=== PATIENT | male | born 1955 | race Two or more races ===

== ENCOUNTER 2020-12-25 09:18 | Outpatient (REF) | payer MEDICARE, MEDICAID, SELFPAY ==
[2020-12-25 11:58] LABS: Alanine Aminotransferase 50 U/L (0-40); Albumin Level 4.4 g/dL (3.5-5.0); Alkaline Phosphatase 68 U/L (39-117); Anion Gap 16 (12-20); Aspartate Amino Transferase 27 U/L (5-37); Bilirubin Direct 0.2 mg/dL (0.0-0.5); Bilirubin Total 0.6 mg/dL (0.0-1.0); Blood Urea Nitrogen 16 mg/dL (9-16); Calcium 9.1 mg/dL (8.4-10.2); Carbon Dioxide 27 mmol/L (22-29); Chloride 105 mmol/L (96-108); Cholesterol 143 mg/dL; Estimated Glomerular Filt Rate > 60; Glucose Fasting 137 mg/dL (60-99); HDL Cholesterol 53 mg/dL; LDL Cholesterol Calculated 64 mg/dl; Potassium 4.5 mmol/L (3.3-5.1); Sodium 143 mmol/L (135-145); Triglycerides 134 mg/dL
[2020-12-25 12:00] LABS: Hematocrit 46.9 % (42-52); Hemoglobin 15.4 g/dl (14.0-18.0); Mean Corpuscular HGB Conc 32.8 g/dl (31.0-36.0); Mean Corpuscular Hemoglobin 29.5 pg (27.0-33.0); Mean Corpuscular Volume 89.8 fL (80-98); Mean Platelet Volume 10.6 fL (9.4-12.4); Platelet Count 211 X10*3/uL (160-400); Red Blood Count 5.22 X10*6/uL (4.60-5.80); Red Cell Distribution Width 13.2 % (11.0-16.0); White Blood Count 5.1 X10*3/uL (4.8-10.8)
[2020-12-25 12:04] LABS: Creatinine Urine 229.38 mg/dL; Microalbum/Creatinine Ratio Ur 5.2 ug/mg cr
[2020-12-25 12:35] LABS: Estimated Average Glucose 146 mg/dL; Hemoglobin A1c % 6.7 %
== END 2020-12-25 09:19 | disposition home or self-care (01) ==
LOC: HO.HMGCLDS 09:18
PROVIDERS: PCP Internal Medicine; Visit Provider Internal Medicine
DX: E78.2 Mixed hyperlipidemia (principal); E11.9 Type 2 diabetes mellitus without complications; I10 Essential (primary) hypertension; R79.89 Other specified abnormal findings of blood chemistry
CPT/HCPCS: 36415; 80053; 80061; 80076; 82043; 82248; 83036; 85027

== ENCOUNTER 2021-04-13 09:11 | Outpatient (REF) | payer MEDICARE, MEDICAID, SELFPAY ==
[2021-04-13 12:09] LABS: Alanine Aminotransferase 38 U/L (0-40); Albumin Level 4.3 g/dL (3.5-5.0); Alkaline Phosphatase 65 U/L (39-117); Anion Gap 12 (12-20); Aspartate Amino Transferase 19 U/L (5-37); Bilirubin Total 0.5 mg/dL (0.0-1.0); Blood Urea Nitrogen 15 mg/dL (9-16); Calcium 9.4 mg/dL (8.4-10.2); Carbon Dioxide 29 mmol/L (22-29); Chloride 107 mmol/L (96-108); Cholesterol 128 mg/dL; Estimated Glomerular Filt Rate > 60; Glucose Fasting 117 mg/dL (60-99); HDL Cholesterol 46 mg/dL; LDL Cholesterol Calculated 62 mg/dl; Potassium 4.6 mmol/L (3.3-5.1); Sodium 143 mmol/L (135-145); Total Protein 6.7 g/dL (6.5-8.0); Triglycerides 104 mg/dL
[2021-04-13 12:21] LABS: Estimated Average Glucose 117 mg/dL; Hemoglobin A1c % 5.7 %
== END 2021-04-13 09:12 | disposition home or self-care (01) ==
LOC: HO.HMGCLDS 09:11
PROVIDERS: PCP Internal Medicine; Visit Provider Internal Medicine
DX: E11.9 Type 2 diabetes mellitus without complications (principal); I10 Essential (primary) hypertension; E78.5 Hyperlipidemia, unspecified; I25.10 Atherosclerotic heart disease of native coronary artery without angina pectoris
CPT/HCPCS: 36415; 80053; 80061; 83036

== ENCOUNTER 2021-04-15 09:20 | Outpatient (REF) | payer MEDICARE, MEDICAID, SELFPAY ==
[2021-04-15 12:10] LABS: Creatinine Urine 139.98 mg/dL; Microalbum/Creatinine Ratio Ur 5.7 ug/mg cr
== END 2021-04-15 09:21 | disposition home or self-care (01) ==
LOC: HO.HMGCLNP 09:20
PROVIDERS: Visit Provider Internal Medicine
DX: E11.9 Type 2 diabetes mellitus without complications (principal); E78.5 Hyperlipidemia, unspecified; I10 Essential (primary) hypertension; I25.10 Atherosclerotic heart disease of native coronary artery without angina pectoris
CPT/HCPCS: 82043

== ENCOUNTER 2022-06-08 08:35 | Outpatient (REF) | payer MEDICARE, MEDICAID, SELFPAY ==
[2022-06-08 11:40] LABS: Hematocrit 43.3 % (42.0-52.0); Hemoglobin 14.7 g/dl (14.0-18.0); Mean Corpuscular HGB Conc 33.9 g/dl (31.0-36.0); Mean Corpuscular Hemoglobin 29.5 pg (27.0-33.0); Mean Corpuscular Volume 86.8 fL (80.0-98.0); Mean Platelet Volume 10.2 fL (9.4-12.4); Platelet Count 237 X10*3/uL (160-400); Red Blood Count 4.99 X10*6/uL (4.60-5.80); Red Cell Distribution Width 13.1 % (11.0-16.0); White Blood Count 5.9 X10*3/uL (4.8-10.8)
[2022-06-08 11:48] LABS: Estimated Average Glucose 126 mg/dL
[2022-06-08 12:06] LABS: Alanine Aminotransferase 22 U/L (0-40); Albumin Level 4.3 g/dL (3.5-5.0); Alkaline Phosphatase 50 U/L (39-117); Anion Gap 16 (12-20); Aspartate Amino Transferase 15 U/L (5-37); Bilirubin Total 0.4 mg/dL (0.0-1.0); Blood Urea Nitrogen 14 mg/dL (9-16); Calcium 9.1 mg/dL (8.4-10.2); Carbon Dioxide 23 mmol/L (22-29); Chloride 106 mmol/L (96-108); Cholesterol 132 mg/dL; Estimated Glomerular Filt Rate > 60; Glucose Fasting 113 mg/dL (60-99); HDL Cholesterol 50 mg/dL; LDL Cholesterol Calculated 54 mg/dl; Potassium 4.4 mmol/L (3.3-5.1); Sodium 141 mmol/L (135-145); Total Protein 6.9 g/dL (6.5-8.0); Triglycerides 144 mg/dL
[2022-06-08 12:09] LABS: Prostate Specific Antigen Scr 0.58 ng/mL (<0.05-4.0)
[2022-06-08 12:41] LABS: Creatinine Urine 206.63 mg/dL; Microalbum/Creatinine Ratio Ur 7.2 ug/mg cr
== END 2022-06-08 08:36 | disposition home or self-care (01) ==
LOC: HO.HMGCLDS 08:35
PROVIDERS: PCP Internal Medicine; Visit Provider Internal Medicine
DX: Z12.5 Encounter for screening for malignant neoplasm of prostate (principal); E11.9 Type 2 diabetes mellitus without complications; E78.5 Hyperlipidemia, unspecified
CPT/HCPCS: 36415; 80053; 80061; 82043; 83036; 84153; 85027

== ENCOUNTER 2022-12-05 09:00 | Outpatient (REF) | payer MEDICARE, MEDICAID, SELFPAY ==
[2022-12-05 11:54] LABS: Alanine Aminotransferase 30 U/L (0-40); Albumin Level 4.3 g/dL (3.5-5.0); Alkaline Phosphatase 51 U/L (39-117); Anion Gap 12 (12-20); Aspartate Amino Transferase 20 U/L (5-37); Bilirubin Total 0.5 mg/dL (0.0-1.0); Blood Urea Nitrogen 19 mg/dL (9-16); Calcium 9.1 mg/dL (8.4-10.2); Carbon Dioxide 26 mmol/L (22-29); Chloride 107 mmol/L (96-108); Cholesterol 116 mg/dL; Estimated Glomerular Filt Rate > 60; Glucose Fasting 103 mg/dL (60-99); HDL Cholesterol 45 mg/dL; LDL Cholesterol Calculated 51 mg/dl; Potassium 4.4 mmol/L (3.3-5.1); Sodium 141 mmol/L (135-145); Total Protein 6.7 g/dL (6.5-8.0); Triglycerides 104 mg/dL
[2022-12-05 12:19] LABS: Estimated Average Glucose 128 mg/dL; Hemoglobin A1c % 6.1 %
== END 2022-12-05 09:01 | disposition home or self-care (01) ==
LOC: HO.HMGCLDS 09:00
PROVIDERS: PCP Internal Medicine; Visit Provider Internal Medicine
DX: E78.5 Hyperlipidemia, unspecified (principal); R56.9 Unspecified convulsions; E11.9 Type 2 diabetes mellitus without complications
CPT/HCPCS: 36415; 80053; 80061; 83036

== ENCOUNTER 2023-01-26 09:19 | Outpatient (REF) | payer MEDICARE, MEDICAID, SELFPAY | END 2023-01-26 09:20 | disposition home or self-care (01) | LOC: HO.SH 09:19 | PROVIDERS: Visit Provider Internal Medicine | DX: H90.3 Sensorineural hearing loss, bilateral (principal) | CPT/HCPCS: 92557; 92567 ==

== ENCOUNTER 2023-06-01 08:52 | Outpatient (REF) | payer MEDICARE, MEDICAID, SELFPAY ==
[2023-06-01 11:36] LABS: MANUAL DIFF FLAG NO
[2023-06-01 11:48] LABS: Basophils Percent Auto 0.6 % (0-2); Eosinophils Absolute Auto 0.1 X10*3/uL (0.0-0.4); Eosinophils Percent Auto 1.3 % (0-4); Hematocrit 42.2 % (42.0-52.0); Hemoglobin 14.1 g/dl (14.0-18.0); Imm Gran Abs Auto 0.05 X10*3/uL (0.00-0.03); Lymphocytes Absolute Auto 2.7 X10*3/uL (1.2-4.9); Mean Corpuscular HGB Conc 33.4 g/dl (31.0-36.0); Mean Corpuscular Hemoglobin 29.7 pg (27.0-33.0); Mean Corpuscular Volume 88.8 fL (80.0-98.0); Mean Platelet Volume 10.3 fL (9.4-12.4); Monocytes Absolute Auto 0.6 X10*3/uL (0.1-1.2); Neutrophils Absolute Auto 1.9 x10*3/uL (2.0-8.3); Neutrophils Percent Auto 35.1 % (45-73); Platelet Count 206 X10*3/uL (160-400); Red Blood Count 4.75 X10*6/uL (4.60-5.80); Red Cell Distribution Width 13.4 % (11.0-16.0); White Blood Count 5.3 X10*3/uL (4.8-10.8)
[2023-06-01 12:02] LABS: Estimated Average Glucose 120 mg/dL; Hemoglobin A1c % 5.8 % (<6.0)
[2023-06-01 12:13] LABS: Alanine Aminotransferase 18 U/L (0-40); Albumin Level 4.1 g/dL (3.5-5.0); Alkaline Phosphatase 44 U/L (39-117); Anion Gap 15 (12-20); Aspartate Amino Transferase 13 U/L (5-37); Bilirubin Total 0.4 mg/dL (0.0-1.0); Blood Urea Nitrogen 12 mg/dL (9-16); Calcium 9.2 mg/dL (8.4-10.2); Carbon Dioxide 26 mmol/L (22-29); Chloride 106 mmol/L (96-108); Cholesterol 111 mg/dL (<200); Estimated Glomerular Filt Rate > 60; Glucose Fasting 117 mg/dL (60-99); HDL Cholesterol 48 mg/dL (>40); LDL Cholesterol Calculated 44 mg/dL (<100); Potassium 4.1 mmol/L (3.3-5.1); Sodium 143 mmol/L (135-145); Total Protein 6.2 g/dL (6.5-8.0); Triglycerides 99 mg/dL (<150)
[2023-06-01 12:23] LABS: PSA,Total (Free>4and<10) 1.51 ng/mL (0.00-4.00)
[2023-06-01 13:22] LABS: Creatinine Urine 200.84 mg/dL; Microalbum/Creatinine Ratio Ur 7.4 ug/mg cr (<30)
== END 2023-06-01 08:53 | disposition home or self-care (01) ==
LOC: HO.HMGCLDS 08:52
PROVIDERS: PCP Internal Medicine; Visit Provider Internal Medicine
DX: Z00.00 Encounter for general adult medical examination without abnormal findings (principal); E11.9 Type 2 diabetes mellitus without complications; R56.9 Unspecified convulsions; E78.5 Hyperlipidemia, unspecified; Z12.5 Encounter for screening for malignant neoplasm of prostate
CPT/HCPCS: 36415; 80053; 80061; 82043; 82570; 83036; 84153; 85025

== ENCOUNTER 2023-06-12 11:17 | Outpatient (AMB) | payer MEDICARE, MEDICAID, SELFPAY ==
--- NOTE | 2023-06-12 11:29 | A.OFFPC_ITS ---
Vital Signs 06/12/23 11:38 Height 5 ft 7 in Weight 212 lb BMI 33.2 BP 104/66 Blood Pressure Location Rt brachial Position Sitting Pulse 80 Pulse Source Pulse Oximeter Pulse Oximetry (%) 95 Oxygen Delivery Method Room Air Intake Visit Reasons: Annual Physical Intake Note: Pt is here today for his PE Allergies No Known Allergies Allergy (Verified 06/12/23 11:32) Medication List - Last Reconciled 06/12/23 by Gisela Jade MD blood sugar diagnostic ([employer] Verio test strips) Test blood sugar once a day blood-glucose meter ([employer] Verio Meter) As directed cholecalciferol (vitamin D3) (Vitamin D3) 25 mcg PO DAILY divalproex ER 1,000 mg PO BEDTIME dulaglutide (Trulicity) 3 mg (0.5 mL) subcut QWEEK famotidine 20 mg PO BEDTIME lancets ([employer] Delica Lancets) Test blood sugar once a day levetiracetam mg PO metformin ER 750 mg PO BID metoprolol tartrate 12.5 mg (1/2 x 25 mg) PO DAILY metronidazole 0.75% (MetroCream) 1 appl topical BEDTIME oxcarbazepine 300 mg PO BID rosuvastatin 20 mg PO DAILY Tobacco use date assessed: 06/12/23 Fall risk assessment: No Falls in past year Last assessed Fall Risk: 06/12/23 Dental Screening Dental Screen Date: 06/12/23 Did you have a dental visit in the last 12 months?: No Was dental information given to patient?: Patient declined HPI Annual Physical HPI Details Patient presents for physical. He complains of intermittent right axillary region discomfort and swelling for the last month. He denies any injury [facility] Medical History Annual physical exam Colonoscopy refused Colon cancer screening Type 2 diabetes mellitus CAD (coronary artery disease) Seizure Hyperlipidemia Cardiac arrest HTN (hypertension) Family History Father Diabetes Stroke Mother Hypertension Social History Housing: House Patient Tobacco Use Status: Former Tobacco user Quit Date: 9 years ago e-Cigarette/Vaping Use: Never Used Current occupational status: retired Cognitive needs: No Hearing needs: Yes Vision needs: No Questionnaire Thrive Questionnaire Date Thrive assessed: 12/12/22 AUDIT C Alcohol Use Questionnaire (AUDIT-C) 1. How often do you have a drink containing alcohol?: Never 3. How often do you have six or more drinks on one occasion?: Never Total Score: 0 JOELLE-7 AMB Questionnaire JOELLE-7 Date JOELLE - 7 assessed: 12/12/22 Source: Developed by Drs. Flo Holley, Torrie Dave, Mohit Martino and colleagues, with an educational deniz from [employer]. Review of Systems Const All systems reviewed & are unremarkable except as noted in HPI and below Reports no additional complaints Eyes Reports no additional complaints ENT Reports no additional complaints Card Reports no additional complaints Resp Reports no additional complaints GI Reports no additional complaints Reports no additional complaints Physical exam (Primary Care) Vital Signs: Last Vital Signs Pulse 80 06/12/23 11:38 BP 104/66 06/12/23 11:38 Pulse Ox 95 06/12/23 11:38 Oxygen Delivery Method Room Air 06/12/23 11:38 BMI result Body Mass Index 33.2 Tobacco/Smoking Status: Tobacco use Status Tobacco use date assessed 06/12/23 06/12/23 11:38 Patient Tobacco Use Status Former Tobacco user 06/12/23 11:30 e-Cigarette/Vaping Use Never Used 06/12/23 11:30 Thrive Assessment: Date of Thrive Assessment Date Thrive assessed 12/12/22 06/12/23 11:30 Const General: no acute distress HENMT Head: Yes normal to inspection Face and sinus: Yes normal facial exam Eyes General: appearance normal, both eyes and all related structures Neck Neck: Yes no lymphadenopathy and Yes supple Chest Other: Right axillary region fullness and tenderness, no overlying skin changes erythema or warmth Resp Effort & Inspection: normal respiratory effort Auscultation: clear to auscultation bilaterally Cardio Rhythm: regular rhythm Heart sounds: S1 normal heart sound present and S2 normal heart sound present GI Inspection: Yes normal to inspection Palpation (GI): Soft to palpation Assessment and Plan Assessment & Plan (1) Mass of axilla: Comment: R axillary Code(s): R22.30 - Localized swelling, mass and lump, unspecified upper limb Plan: Obtain soft tissue ultrasound to evaluate for right axillary region (2) Type 2 diabetes mellitus: Code(s): E11.9 - Type 2 diabetes mellitus without complications Plan: A1c is 5.8, new ADA diet increase physical activity weight loss discussed. Follow-up in 6 months with a fasting labs before (3) Hyperlipidemia: Code(s): E78.5 - Hyperlipidemia, unspecified Plan: Continue statin (4) Annual physical exam: Code(s): Z00.00 - Encounter for general adult medical examination without abnormal findings Plan: Well-balanced diet and regular physical activity discussed with the patient (5) Rosacea: Code(s): L71.9 - Rosacea, unspecified Plan: Try azelaic acid gel Orders: Orders US extremity nonvascular Today R22.30 - Localized swelling, mass and lump, unspecified upper limb Complete Blood Count Auto Diff 6 Months E11.9 - Type 2 diabetes mellitus without complications, E78.5 - Hyperlipidemia, unspecified Lipid Panel 6 Months E11.9 - Type 2 diabetes mellitus without complications, E78.5 - Hyperlipidemia, unspecified Comprehensive [place]. Panel Fast 6 Months E11.9 - Type 2 diabetes mellitus without complications, E78.5 - Hyperlipidemia, unspecified Hemoglobin A1c 6 Months E11.9 - Type 2 diabetes mellitus without complications, E78.5 - Hyperlipidemia, unspecified Medications: New azelaic acid 15% (Finacea) 1 appl topical BID 50 grams 1RF Coding Level of Care Code Est Pt Prev Care >65y(84473) Diagnoses Mass of axilla R22.30 Type 2 diabetes mellitus E11.9 Hyperlipidemia E78.5 Annual physical exam Z00.00 Rosacea L71.9
[2023-06-12 11:38] VITALS: BP 104/66; PULSE 80; O2SAT 95; BMI 33.2
== END 2023-06-12 12:48 | disposition home or self-care (01) ==
PROVIDERS: Visit Provider Internal Medicine
DX: Z00.00 Encounter for general adult medical examination without abnormal findings (principal); R22.30 Localized swelling, mass and lump, unspecified upper limb; E11.9 Type 2 diabetes mellitus without complications; E78.5 Hyperlipidemia, unspecified; L71.9 Rosacea, unspecified
CPT/HCPCS: 99397

== ENCOUNTER 2023-06-13 13:46 | Outpatient (REF) | payer MEDICARE, MEDICAID, SELFPAY ==
--- NOTE | ~2023-06-13 | US_ITS ---
EXAMINATION: US CHEST CLINICAL INFORMATION: Localized swelling, mass and lump. COMPARISON: None available. TECHNIQUE: Limited ultrasound imaging to the right axilla was performed. Rare patient has swelling. FINDINGS: Imaging to the tender area of right axilla reveals no mass, mass effect or increased vascularity. No lymph nodes seen either. The disc and appears unremarkable. US/US chest IMPRESSION: Limited imaging through the right axilla reveals no focal mass or mass effect. No abnormal vascularity seen either..
== END 2023-06-13 13:47 | disposition home or self-care (01) ==
LOC: HO.HMGCX 13:46
PROVIDERS: PCP Internal Medicine; Visit Provider Internal Medicine
DX: R22.30 Localized swelling, mass and lump, unspecified upper limb (principal)
CPT/HCPCS: 76604

== ENCOUNTER 2023-12-01 09:04 | Outpatient (REF) | payer MEDICARE, MEDICAID, SELFPAY ==
[2023-12-01 10:38] LABS: MANUAL DIFF FLAG NO
[2023-12-01 10:46] LABS: Basophils Percent Auto 0.6 % (0-2); Eosinophils Absolute Auto 0.1 X10*3/uL (0.0-0.4); Eosinophils Percent Auto 1.1 % (0-4); Hematocrit 43.6 % (42.0-52.0); Hemoglobin 14.8 g/dl (14.0-18.0); Imm Gran Abs Auto 0.05 X10*3/uL (0.00-0.03); Lymphocytes Absolute Auto 2.5 X10*3/uL (1.2-4.9); Lymphocytes Percent Auto 48.4 % (20-40); Mean Corpuscular HGB Conc 33.9 g/dl (31.0-36.0); Mean Corpuscular Hemoglobin 29.9 pg (27.0-33.0); Mean Corpuscular Volume 88.1 fL (80.0-98.0); Mean Platelet Volume 10.5 fL (9.4-12.4); Monocytes Absolute Auto 0.7 X10*3/uL (0.1-1.2); Monocytes Percent Auto 13.6 % (2-11); Neutrophils Absolute Auto 1.9 x10*3/uL (2.0-8.3); Neutrophils Percent Auto 35.3 % (45-73); Platelet Count 226 X10*3/uL (160-400); Red Blood Count 4.95 X10*6/uL (4.60-5.80); Red Cell Distribution Width 13.6 % (11.0-16.0); White Blood Count 5.2 X10*3/uL (4.8-10.8)
[2023-12-01 11:02] LABS: Estimated Average Glucose 131 mg/dL; Hemoglobin A1c % 6.2 % (<6.0)
[2023-12-01 12:20] LABS: Alanine Aminotransferase 26 U/L (0-40); Albumin Level 4.3 g/dL (3.5-5.0); Alkaline Phosphatase 48 U/L (39-117); Anion Gap 15 (12-20); Aspartate Amino Transferase 20 U/L (5-37); Bilirubin Total 0.4 mg/dL (0.0-1.0); Blood Urea Nitrogen 16 mg/dL (9-16); Calcium 9.4 mg/dL (8.4-10.2); Carbon Dioxide 27 mmol/L (22-29); Chloride 107 mmol/L (96-108); Cholesterol 115 mg/dL (<200); Estimated Glomerular Filt Rate > 60; Glucose Fasting 124 mg/dL (60-99); HDL Cholesterol 50 mg/dL (>40); LDL Cholesterol Calculated 47 mg/dL (<100); Potassium 4.5 mmol/L (3.3-5.1); Sodium 144 mmol/L (135-145); Total Protein 7.3 g/dL (6.5-8.0); Triglycerides 93 mg/dL (<150)
== END 2023-12-01 09:05 | disposition home or self-care (01) ==
LOC: HO.HMGCLDS 09:04
PROVIDERS: PCP Internal Medicine; Visit Provider Internal Medicine
DX: E11.9 Type 2 diabetes mellitus without complications (principal); E78.5 Hyperlipidemia, unspecified
CPT/HCPCS: 36415; 80053; 80061; 83036; 85025

== ENCOUNTER 2023-12-12 10:40 | Outpatient (AMB) | payer MEDICARE, MEDICAID, SELFPAY ==
--- NOTE | 2023-12-12 10:47 | MHC.PC.OV ---
Vital Signs 12/12/23 10:51 Height 5 ft 7 in Weight 215 lb BMI 33.7 BP 110/62 Blood Pressure Location Rt brachial Position Sitting Pulse 76 Pulse Source Pulse Oximeter Pulse Oximetry (%) 96 Oxygen Delivery Method Room Air Intake Visit Reasons: 6 month f/u - see comments Intake Note: Pt is here today for 6 months follow up visit on labs. Allergies No Known Allergies Allergy (Verified 12/12/23 10:58) Medication List - Last Reconciled 12/12/23 by Gisela Jade MD azelaic acid 15% (Finacea) 1 appl topical BID blood sugar diagnostic ([employer] Verio test strips) Test blood sugar once a day blood-glucose meter ([employer] Verio Meter) As directed cholecalciferol (vitamin D3) (Vitamin D3) 25 mcg PO DAILY divalproex ER 1,000 mg PO BEDTIME dulaglutide (Trulicity) 4.5 mg (0.5 mL) subcut QWEEK dulaglutide (Trulicity) 3 mg (0.5 mL) subcut QWEEK famotidine 20 mg PO BEDTIME lancets ([employer] Delica Lancets) Test blood sugar once a day levetiracetam mg PO metformin ER 750 mg PO BID metoprolol tartrate 12.5 mg (1/2 x 25 mg) PO DAILY metronidazole 0.75% (MetroCream) 1 appl topical BEDTIME oxcarbazepine 300 mg PO BID rosuvastatin 20 mg PO DAILY Tobacco use date assessed: 12/12/23 Fall risk assessment: No Falls in past year Last assessed Fall Risk: 12/12/23 Dental Screening Dental Screen Date: 12/12/23 Did you have a dental visit in the last 12 months?: Yes Did you have a dental problem in the last 6 months where you did not have access to dental care?: No Was dental information given to patient?: Patient has dentist HPI 6 month f/u - see comments HPI Details Pt presents for DM 2, hyperlipid, seizure disorder after anoxic brain injury PFSH Medical History Annual physical exam Colonoscopy refused Colon cancer screening Type 2 diabetes mellitus CAD (coronary artery disease) Seizure Hyperlipidemia Cardiac arrest HTN (hypertension) Family History Father Diabetes Stroke Mother Hypertension Social History Housing: House Patient Tobacco Use Status: Former Tobacco user Quit Date: 9 years ago e-Cigarette/Vaping Use: Never Used service: No Current occupational status: retired Cognitive needs: No Hearing needs: Yes Vision needs: No Questionnaire PHQ-9 Over the last 2 weeks, how often have you been bothered by any of the following problems? 1. Little interest or pleasure in doing things: not at all 2. Feeling down, depressed, or hopeless: not at all 3. Trouble falling or staying asleep, or sleeping too much: not at all 4. Feeling tired or having little energy: not at all 5. Poor appetite or overeating: not at all 6. Feeling bad about yourself - or that you are a failure or have let yourself or your family down: not at all 7. Trouble concentrating on things, such as reading the newspaper or watching television: not at all 8. Moving or speaking so slowly that other people could have noticed. Or the opposite - being so fidgety or restless that you have been moving around a lot more than usual: not at all 9. Thoughts that you would be better off or of hurting yourself in some way: not at all Total score: 0 Depression Screening Interpretation: Negative Depression Screening Done: Yes Source: Developed by Drs. Flo Holley, Torrie Dave, Mohit Martino and colleagues, with an educational deniz from [employer]. Thrive Questionnaire Date Thrive assessed: 12/12/23 I am a: Patient What is your living situation today?: I have a steady place to live Within the past 12 months, did the food you bought not last and you didn't have the money to get more?: Never true Within the past 12 months, did you worry whether your food would run out before you got money to buy more?: Never true Do you have trouble paying for medicines?: No Do you have trouble getting transportation to medical appointments?: No Do you have trouble paying your heating and electricity bill?: No Do you have trouble taking care of your child, family member or friend?: No Do you have trouble with day-to-day activities such as bathing, preparing meals, shopping, managing finances, etc.?: No Are you currently unemployed and looking for a job?: No Are you interested in more education?: No Please select the resources that you would like help with: None THRIVE Score: 0 AUDIT C Alcohol Use Questionnaire (AUDIT-C) 1. How often do you have a drink containing alcohol?: Never 3. How often do you have six or more drinks on one occasion?: Never Total Score: 0 JOELLE-7 AMB Questionnaire JOELLE-7 Date JOELLE - 7 assessed: 12/12/23 Feeling nervous, anxious, or on edge: 0 = Not at all Not being able to stop or control worryin = Not at all Worrying too much about different things: 0 = Not at all Trouble relaxin = Not at all Being so restless that it is hard to sit still: 0 = Not at all Becoming easily annoyed or irritable: 0 = Not at all Feeling afraid as if something awful might happen: 0 = Not at all Total JOELLE-7 score (0-4 normal; 5-9 mild; 10-14 moderate; 15-21 severe): 0 Source: Developed by Drs. Flo Holley, Torrie Dave, Mohit Martino and colleagues, with an educational deniz from [employer]. Review of Systems Const All systems reviewed & are unremarkable except as noted in HPI and below ENT Reports no additional complaints Card Reports no additional complaints Resp Reports no additional complaints GI Reports no additional complaints Reports no additional complaints Physical exam (Primary Care) Vital Signs: Last Vital Signs Pulse 76 12/12/23 10:51 BP 110/62 12/12/23 10:51 Pulse Ox 96 12/12/23 10:51 Oxygen Delivery Method Room Air 12/12/23 10:51 BMI result Body Mass Index 33.7 Tobacco/Smoking Status: Tobacco use Status Tobacco use date assessed 12/12/23 12/12/23 10:59 Patient Tobacco Use Status Former Tobacco user 12/12/23 10:59 e-Cigarette/Vaping Use Never Used 12/12/23 10:47 PHQ-9: PHQ-9 Score PHQ-9: Total score 0 12/12/23 11:03 Depression Screening Interpretation: Negative Thrive Assessment: Date of Thrive Assessment Date Thrive assessed 12/12/23 12/12/23 11:03 Const General: no acute distress Eyes General: appearance normal, both eyes and all related structures Neck Neck: Yes supple Resp Effort & Inspection: normal respiratory effort Auscultation: clear to auscultation bilaterally Cardio Rhythm: regular rhythm Heart sounds: S1 normal heart sound present and S2 normal heart sound present GI Inspection: Yes normal to inspection Palpation (GI): Soft to palpation Percussion: Yes normal to percussion Auscultation: normal bowel sounds Assessment and Plan Assessment & Plan (1) Hyperlipidemia: Code(s): E78.5 - Hyperlipidemia, unspecified Plan: cont statin (2) Seizure: Code(s): R56.9 - Unspecified convulsions Plan: controlled on meds, f/u neurology (3) Type 2 diabetes mellitus: Code(s): E11.9 - Type 2 diabetes mellitus without complications Plan: A1C is 6.2, ADA diet increase exercise weight loss discussed with the patient. Increase Trulicity to 4.5 mg continue metformin, follow-up in 6 months with a fasting labs before Orders: Orders Comprehensive [place]. Panel Fast 6 Months E11.9 - Type 2 diabetes mellitus without complications, E78.5 - Hyperlipidemia, unspecified, R56.9 - Unspecified convulsions Hemoglobin A1c 6 Months E11.9 - Type 2 diabetes mellitus without complications, E78.5 - Hyperlipidemia, unspecified, R56.9 - Unspecified convulsions Lipid Panel 6 Months E11.9 - Type 2 diabetes mellitus without complications, E78.5 - Hyperlipidemia, unspecified, R56.9 - Unspecified convulsions PSA,Total (Free>4and<10) 6 Months E11.9 - Type 2 diabetes mellitus without complications, E78.5 - Hyperlipidemia, unspecified, R56.9 - Unspecified convulsions Medications: New dulaglutide (Trulicity) 4.5 mg (0.5 mL) subcut QWEEK 6 mL 3RF Discontinued dulaglutide (Trulicity) Discontinued Reason: Doctor's Order 3 mg (0.5 mL) subcut QWEEK 6 mL 3RF Coding Level of Care Code Est Pt Level 4 (58819) Diagnoses Hyperlipidemia E78.5 Seizure R56.9 Type 2 diabetes mellitus E11.9
[2023-12-12 10:51] VITALS: BP 110/62; PULSE 76; O2SAT 96; BMI 33.7
== END 2023-12-12 13:53 | disposition home or self-care (01) ==
PROVIDERS: PCP Internal Medicine; Visit Provider Internal Medicine
DX: E78.5 Hyperlipidemia, unspecified (principal); R56.9 Unspecified convulsions; E11.69 Type 2 diabetes mellitus with other specified complication
CPT/HCPCS: 99214

== ENCOUNTER 2023-12-28 10:51 | Outpatient (AMB) | payer MEDICARE, MEDICAID, SELFPAY ==
--- NOTE | 2023-12-28 11:19 | MHC.PC.OV ---
Vital Signs 12/28/23 11:20 Height 5 ft 7 in Weight 208 lb BMI 32.6 BP 110/68 Blood Pressure Location Lt brachial Position Sitting Pulse 96 Pulse Source Pulse Oximeter Pulse Oximetry (%) 94 Oxygen Delivery Method Room Air Intake Visit Reasons: Swollen eye w/puss/strep? Intake Note: Pt is here today for a sick visit. Pt c/o deep cough and sore throat for last 3 days. Allergies No Known Allergies Allergy (Verified 12/28/23 11:26) Tobacco use date assessed: 12/12/23 Dental Screening Dental Screen Date: 12/12/23 HPI HPI Comments History of Present Illness Details Patient presents with 3 days of sore throat dry cough congestion low-grade fever. Patient denies shortness or breath sputum production pleurisy. [facility] Medical History Annual physical exam Colonoscopy refused Colon cancer screening Type 2 diabetes mellitus CAD (coronary artery disease) Seizure Hyperlipidemia Cardiac arrest HTN (hypertension) Family History Father Diabetes Stroke Mother Hypertension Social History Housing: House Patient Tobacco Use Status: Former Tobacco user Quit Date: 9 years ago e-Cigarette/Vaping Use: Never Used service: No Current occupational status: retired Cognitive needs: No Hearing needs: Yes Vision needs: No Questionnaire Thrive Questionnaire Date Thrive assessed: 12/12/23 JOELLE-7 AMB Questionnaire JOELLE-7 Date JOELLE - 7 assessed: 12/12/23 Source: Developed by Drs. Flo Holley, Torrie Dave, Mohit Martino and colleagues, with an educational deniz from [employer]. Review of Systems Const All systems reviewed & are unremarkable except as noted in HPI and below ENT Reports no additional complaints Card Reports no additional complaints Resp Reports no additional complaints GI Reports no additional complaints Physical exam (Primary Care) Vital Signs: Last Vital Signs Pulse 96 12/28/23 11:20 BP 110/68 12/28/23 11:20 Pulse Ox 94 12/28/23 11:20 Oxygen Delivery Method Room Air 12/28/23 11:20 BMI result Body Mass Index 32.6 Tobacco/Smoking Status: Tobacco use Status Tobacco use date assessed 12/12/23 12/28/23 11:26 Patient Tobacco Use Status Former Tobacco user 12/28/23 11:26 e-Cigarette/Vaping Use Never Used 12/28/23 11:26 Thrive Assessment: Date of Thrive Assessment Date Thrive assessed 12/12/23 12/28/23 11:26 Const General: no acute distress HENMT Head: Yes normal to inspection Ears: TM's normal bilaterally Face and sinus: Yes normal facial exam and No sinus tenderness Throat: Yes posterior oropharynx normal Eyes General: appearance normal, both eyes and all related structures Neck Neck: Yes supple Resp Effort & Inspection: normal respiratory effort Auscultation: clear to auscultation bilaterally Cardio Rhythm: regular rhythm Heart sounds: S1 normal heart sound present and S2 normal heart sound present Assessment and Plan Assessment & Plan (1) URI (upper respiratory infection): Code(s): J06.9 - Acute upper respiratory infection, unspecified Plan: SUPPORTIVE CARE DISCUSSED Coding Level of Care Code Est Pt Level 3 (19824) Diagnoses URI (upper respiratory infection) J06.9
[2023-12-28 11:20] VITALS: BP 110/68; PULSE 96; O2SAT 94; BMI 32.6
== END 2023-12-28 12:21 | disposition home or self-care (01) ==
PROVIDERS: PCP Internal Medicine; Visit Provider Internal Medicine
DX: J06.9 Acute upper respiratory infection, unspecified (principal)
CPT/HCPCS: 99213

== ENCOUNTER 2024-06-05 09:06 | Outpatient (REF) | payer MEDICARE, MEDICAID, SELFPAY ==
[2024-06-05 10:33] LABS: Estimated Average Glucose 126 mg/dL; Hemoglobin A1C 151.1712 umol/L; Total Hemoglobin (HGBA1C) 3573.1244 umol/L
[2024-06-05 11:12] LABS: Alanine Aminotransferase 27 U/L (0-40); Albumin Level 4.2 g/dL (3.5-5.0); Alkaline Phosphatase 47 U/L (39-117); Anion Gap 13 (12-20); Aspartate Amino Transferase 17 U/L (5-37); Bilirubin Total 0.4 mg/dL (0.0-1.0); Blood Urea Nitrogen 16 mg/dL (9-16); Calcium 9.6 mg/dL (8.4-10.2); Carbon Dioxide 27 mmol/L (22-29); Chloride 107 mmol/L (96-108); Cholesterol 119 mg/dL (<200); Estimated Glomerular Filt Rate > 60; Glucose Fasting 113 mg/dL (60-99); HDL Cholesterol 51 mg/dL (>40); LDL Cholesterol Calculated 48 mg/dL (<100); Potassium 4.2 mmol/L (3.3-5.1); Sodium 143 mmol/L (135-145); Triglycerides 102 mg/dL (<150)
[2024-06-05 11:19] LABS: PSA,Total (Free>4and<10) 1.85 ng/mL (0.00-4.00)
== END 2024-06-05 09:07 | disposition home or self-care (01) ==
LOC: HO.HMGCLDS 09:06
PROVIDERS: PCP Internal Medicine; Visit Provider Internal Medicine
DX: E11.9 Type 2 diabetes mellitus without complications (principal); R56.9 Unspecified convulsions; E78.5 Hyperlipidemia, unspecified; Z12.5 Encounter for screening for malignant neoplasm of prostate
CPT/HCPCS: 36415; 80053; 80061; 83036; 84153

== ENCOUNTER 2024-06-19 10:03 | Outpatient (AMB) | payer MEDICARE, MEDICAID, SELFPAY ==
[2024-06-19 10:11] VITALS: BP 124/70; PULSE 97; O2SAT 96; BMI 32.9
--- NOTE | 2024-06-19 10:11 | MHC.PC.OV ---
Vital Signs 06/19/24 10:11 Height 5 ft 7 in Weight 210 lb BMI 32.9 BP 124/70 Blood Pressure Location Lt brachial Position Sitting Pulse 97 Pulse Source Pulse Oximeter Pulse Oximetry (%) 96 Oxygen Delivery Method Room Air Intake Visit Reasons: Annual PE - see comments Intake Note: Pt is here today for PE. Allergies No Known Allergies Allergy (Verified 06/19/24 10:12) Medication List - Last Reconciled 06/19/24 by Gisela Jade MD azelaic acid 15% (Finacea) 1 appl topical BID blood sugar diagnostic (OneTouch Verio test strips) Test blood sugar once a day blood-glucose meter (OneTouch Verio Meter) As directed cholecalciferol (vitamin D3) (Vitamin D3) 25 mcg PO DAILY divalproex ER 1,000 mg PO BEDTIME dulaglutide (Trulicity) 4.5 mg (0.5 mL) subcut QWEEK famotidine 20 mg PO BEDTIME lancets Test blood sugar once a day levetiracetam mg PO metformin ER 750 mg PO BID metoprolol tartrate 12.5 mg (1/2 x 25 mg) PO DAILY metronidazole 0.75% (MetroCream) 1 appl topical BEDTIME oxcarbazepine 300 mg PO BID rosuvastatin 20 mg PO DAILY Tobacco use date assessed: 06/19/24 Fall risk assessment: No Falls in past year Last assessed Fall Risk: 06/19/24 Dental Screening Dental Screen Date: 12/12/23 HPI Annual PE - see comments HPI Details Pt presents for PE. [facility] Medical History Annual physical exam Colonoscopy refused Colon cancer screening Type 2 diabetes mellitus CAD (coronary artery disease) Seizure Hyperlipidemia Cardiac arrest HTN (hypertension) Family History Father Diabetes Stroke Mother Hypertension Social History Housing: House Patient Tobacco Use Status: Former Tobacco user e-Cigarette/Vaping Use: Never Used service: No Current occupational status: retired Cognitive needs: No Hearing needs: Yes Vision needs: No Questionnaire PHQ-9 Over the last 2 weeks, how often have you been bothered by any of the following problems? 1. Little interest or pleasure in doing things: not at all 2. Feeling down, depressed, or hopeless: not at all 3. Trouble falling or staying asleep, or sleeping too much: several days 4. Feeling tired or having little energy: several days 5. Poor appetite or overeating: not at all 6. Feeling bad about yourself - or that you are a failure or have let yourself or your family down: several days 7. Trouble concentrating on things, such as reading the newspaper or watching television: not at all 8. Moving or speaking so slowly that other people could have noticed. Or the opposite - being so fidgety or restless that you have been moving around a lot more than usual: several days 9. Thoughts that you would be better off or of hurting yourself in some way: not at all Total score: 4 Depression Screening Interpretation: Negative Depression Screening Done: Yes 08735 - PHQ-9 Billing: Yes Source: Developed by Drs. Flo Holley, Torrie Dave, Mohit Martino and colleagues, with an educational deniz from [employer]. Thrive Questionnaire Date Thrive assessed: 06/19/24 I am a: Patient What is your living situation today?: I have a steady place to live Within the past 12 months, did the food you bought not last and you didn't have the money to get more?: I choose not to answer this question Within the past 12 months, did you worry whether your food would run out before you got money to buy more?: I choose not to answer this question Do you have trouble paying for medicines?: I choose not to answer this question Do you have trouble getting transportation to medical appointments?: I choose not to answer this question Do you have trouble paying your heating and electricity bill?: I choose not to answer this question Do you have trouble taking care of your child, family member or friend?: I choose not to answer this question Do you have trouble with day-to-day activities such as bathing, preparing meals, shopping, managing finances, etc.?: I choose not to answer this question Are you currently unemployed and looking for a job?: I choose not to answer this question Are you interested in more education?: I choose not to answer this question Please select the resources that you would like help with: None Currently or been in a relationship where the following occur: No concerns reported THRIVE Score: 0 AUDIT C Alcohol Use Questionnaire (AUDIT-C) 1. How often do you have a drink containing alcohol?: Never Total Score: 0 JOELLE-7 AMB Questionnaire JOELLE-7 Date JOELLE - 7 assessed: 06/19/24 Feeling nervous, anxious, or on edge: 1 = Several days Not being able to stop or control worryin = Not at all Worrying too much about different things: 0 = Not at all Trouble relaxin = Not at all Being so restless that it is hard to sit still: 0 = Not at all Becoming easily annoyed or irritable: 0 = Not at all Feeling afraid as if something awful might happen: 0 = Not at all Total JOELLE-7 score (0-4 normal; 5-9 mild; 10-14 moderate; 15-21 severe): 1 Source: Developed by Drs. Flo Holley, Torrie Dave, Mohit Martino and colleagues, with an educational deniz from [employer]. JOELLE-7 Assessment Billing JOELLE-7 Assessment Tool: JOELLE-7 Assessment 00092 Review of Systems Const All systems reviewed & are unremarkable except as noted in HPI and below Reports no additional complaints Eyes Reports no additional complaints ENT Reports no additional complaints Card Reports no additional complaints Resp Reports no additional complaints GI Reports no additional complaints Reports no additional complaints Physical exam (Primary Care) Vital Signs: Last Vital Signs Pulse 97 06/19/24 10:11 BP 124/70 06/19/24 10:11 Pulse Ox 96 06/19/24 10:11 Oxygen Delivery Method Room Air 06/19/24 10:11 BMI result Body Mass Index 32.9 Tobacco/Smoking Status: Tobacco use Status Tobacco use date assessed 06/19/24 06/19/24 10:12 Patient Tobacco Use Status Former Tobacco user 06/19/24 10:12 e-Cigarette/Vaping Use Never Used 06/19/24 10:12 PHQ-9: PHQ-9 Score PHQ-9: Total score 4 06/19/24 10:43 Depression Screening Interpretation: Negative Thrive Assessment: Date of Thrive Assessment Date Thrive assessed 06/19/24 06/19/24 10:23 Currently or been in a relationship where the following occur: No concerns reported Const General: no acute distress HENMT Head: Yes normal to inspection Ears: hearing grossly normal bilaterally Face and sinus: Yes normal facial exam Mouth: Normal oral and palatal mucosa present Eyes General: appearance normal, both eyes and all related structures Neck Neck: Yes no lymphadenopathy and Yes supple Resp Effort & Inspection: normal respiratory effort Auscultation: clear to auscultation bilaterally Cardio Rhythm: regular rhythm Heart sounds: S1 normal heart sound present and S2 normal heart sound present GI Inspection: Yes normal to inspection Palpation (GI): Soft to palpation Percussion: Yes normal to percussion Auscultation: normal bowel sounds Coding Level of Care Code Est Pt Prev Care >65y(67358) Diagnoses Type 2 diabetes mellitus E11.9 Hyperlipidemia E78.5 Seizure R56.9 Annual physical exam Z00.00 Additional Codes JOELLE-7 Assessment Billing - JOELLE-7 Assessment Tool: JOELLE-7 Assessment 45188 ([id number]) Assessment & Plan Assessment & Plan (1) Type 2 diabetes mellitus: Code(s): E11.9 - Type 2 diabetes mellitus without complications Category: Medical Plan: A1C is 6.0, ADA diet , increase exercise, weight loss discussed. If patient is not able to lose weight in the next 3 months Trulicity will be changed to Mounjaro. (2) Hyperlipidemia: Code(s): E78.5 - Hyperlipidemia, unspecified Category: Medical Plan: cont statin (3) Seizure: Code(s): R56.9 - Unspecified convulsions Category: Medical Plan: cont meds (4) Annual physical exam: Code(s): Z00.00 - Encounter for general adult medical examination without abnormal findings Category: Medical Plan: , weight loss discussed with the patient well balanced diet, regular exercise Orders: Orders Lipid Panel 6 Months E11.9 - Type 2 diabetes mellitus without complications, E78.5 - Hyperlipidemia, unspecified Hemoglobin A1c 6 Months E11.9 - Type 2 diabetes mellitus without complications, E78.5 - Hyperlipidemia, unspecified Hemoglobin A1c 3 Months E11.9 - Type 2 diabetes mellitus without complications, E78.5 - Hyperlipidemia, unspecified Comprehensive [place]. Panel Fast 6 Months E11.9 - Type 2 diabetes mellitus without complications, E78.5 - Hyperlipidemia, unspecified
== END 2024-06-19 11:21 | disposition home or self-care (01) ==
LOC: HO.HMCC 10:04
PROVIDERS: PCP Internal Medicine; Visit Provider Internal Medicine
DX: E11.9 Type 2 diabetes mellitus without complications (principal); E78.5 Hyperlipidemia, unspecified; R56.9 Unspecified convulsions; Z00.00 Encounter for general adult medical examination without abnormal findings

== ENCOUNTER → 2024-06-19 10:03 | Outpatient (BNVA) | payer MEDICARE, MEDICAID, SELFPAY | PROVIDERS: PCP Internal Medicine; Visit Provider Internal Medicine | DX: Z00.01 Encounter for general adult medical examination with abnormal findings (principal); E11.9 Type 2 diabetes mellitus without complications; E78.5 Hyperlipidemia, unspecified; R56.9 Unspecified convulsions | CPT/HCPCS: 96127; 99397 ==

== ENCOUNTER 2024-10-16 13:40 | Outpatient (REF) | payer MEDICARE, MEDICAID, SELFPAY ==
--- OUTSIDE RECORDS SUMMARY | 2024-10-16 16:49 | XMS_ITS ---
Author Name [facility] Organization Unknown History of Medication Use Medication Directions Dispensed Refills Start Date End Date Stat us levETIRAcetam (KEPPRA) 1000 MG tablet Take 1,000 mg by mouth 3 (three) times a day. active famotidine (PEPCID) 20 MG tablet Take 20 mg by mouth nightly. 07/24/2024 active sulfamethoxazole-trimet hoprim (BACTRIM DS,SEPTRA DS) 800-160 MG per tablet Take 1 tablet by mouth 2 (two) times a day. 10/13/2024 active rosuvastatin (CRESTOR) 20 MG tablet Take 20 mg by mouth. 07/24/2024 active divalproex er (DEPAKOTE ER) 500 MG 24 hr tablet Take 500 mg by mouth 2 times a day. active cholecalciferol (CHOLECALCIFEROL) 250 MCG (83365 UT) capsule Take 1 capsule by mouth. 02/02/2024 active OXcarbazepine (TRILEPTAL) 150 MG tablet TAKE 2 TABLETS BY MOUTH IN THE MORNING AND 3 TABLETS EVERY EVENING active metFORMIN (GLUCOPHAGE-XR) 750 MG 24 hr tablet 1 tablet by Mouth/Oral Cavity route every 12 hours. 07/26/2024 active Trulicity 4.5 MG/0.5ML prefilled pen injection ADMINISTER 4.5 MG UNDER THE SKIN EVERY WEEK 07/31/2024 active metoPROLOL TARTRATE (LOPRESSOR) 25 MG tablet Take 12.5 mg by mouth. 07/26/2024 active Problems Problem Status Onset Date Problem Type Date of Resoluti on Source Dysuria active EncounterDiagnosisAct [facility]
--- OUTSIDE RECORDS SUMMARY | 2024-10-16 16:49 | XMS_ITS | Encounter Summary ---
Author Organization Formerly [facility] Address [address] [place] [address] Care Team Providers Care Front Office Specialist Name Role Phone Unknown Primary Care Provider Encounter Details Date Type Department Care Team (Late st Contact Info) Description 10/13/2024 Scanned Document [address] [place] [phone] Provider, Generic Social History Tobacco Use Types Packs/Day Years Used Date Smoking Tobacco: Never Assessed Sex and Gender Information Value Date Recorded Sex Assigned at Not on file Gender Identity Not on file Sexual Orientation Not on file documented as of this encounter Plan of Treatment Not on file documented as of this encounter Visit Diagnoses Not on filedocumented in this encounter Care Teams Front Office Specialist Relationship Specialty Start Date End Date Unknown Unknow Provider Address PCP - General 10/13/24 documented as of this encounter
--- OUTSIDE RECORDS SUMMARY | 2024-10-16 16:49 | XMS_ITS | Clinical Summary ---
Author Organization [facility] Address [address] [place] [address] Care Team Providers Care Fans Clerk Name Role Phone Unknown Primary Care Provider [phone] Allergies No known active allergies Medications Medication Sig Dispensed Refills Start Date End Date Status cholecalciferol (CHOLECALCIFEROL) 250 MCG (31495 UT) capsule Take 1 capsule by mouth. 02/02/2024 10/29/2024 Active divalproex er (DEPAKOTE ER) 500 MG 24 hr tablet Take 500 mg by mouth 2 times a day. Active Trulicity 4.5 MG/0.5ML prefilled pen injection ADMINISTER 4.5 MG UNDER THE SKIN EVERY WEEK 07/31/2024 Active famotidine (PEPCID) 20 MG tablet Take 20 mg by mouth nightly. 07/24/2024 Active levETIRAcetam (KEPPRA) 1000 MG tablet Take 1,000 mg by mouth 3 (three) times a day. Active metFORMIN (GLUCOPHAGE-XR) 750 MG 24 hr tablet 1 tablet by Mouth/Oral Cavity route every 12 hours. 07/26/2024 Active metoPROLOL TARTRATE (LOPRESSOR) 25 MG tablet Take 12.5 mg by mouth. 07/26/2024 Active OXcarbazepine (TRILEPTAL) 150 MG tablet TAKE 2 TABLETS BY MOUTH IN THE MORNING AND 3 TABLETS EVERY EVENING Active rosuvastatin (CRESTOR) 20 MG tablet Take 20 mg by mouth. 07/24/2024 Active sulfamethoxazole-t rimethoprim (BACTRIM DS,SEPTRA DS) 800-160 MG per tabletIndications: Dysuria Take 1 tablet by mouth 2 (two) times a day. 14 tablet 10/13/2024 10/20/2024 Active Encounters Date Type Department Care Team Description 10/13/2024 12:00 PM EST Office Visit [facility] [address] [place] [address] Otto Tian MD George, Stella, PA-C Dysuria (Primary Dx) 10/13/2024 Scanned Document [facility] [address] [facility] [address] [place] [phone] Provider, Generic 10/13/2024 Travel 10/13/2024 Scanned Document [facility] [address] [facility] [address] [place] [address] Provider, Generic from Last 3 Months Social History Tobacco Use Types Packs/Day Years Used Date Smoking Tobacco: Never Assessed Sex and Gender Information Value Date Recorded Sex Assigned at Not on file Gender Identity Not on file Sexual Orientation Not on file Last Filed Vital Signs Vital Sign Reading Time Taken Comments Blood Pressure 122/77 10/13/2024 11:58 AM EST Pulse 86 10/13/2024 11:58 AM EST Temperature 36.9 ??C (98.4 ??F) 10/13/2024 11:[address] Respiratory Rate 14 10/13/2024 11:58 AM EST Oxygen Saturation 98% 10/13/2024 11:58 AM EST Inhaled Oxygen Concentration - - Weight - - Height - - Body Mass Index - - Plan of Treatment Health Maintenance Due Date Last Done Comments Hepatitis C Virus Screening 1955 DTaP/Tdap/Td Vaccines (1 - Tdap) 1972 Colonoscopy 1998 Pneumococcal Vaccines 50+ (1 of 1 - PCV) 2003 Zoster (Shingles) Vaccine (1 of 2) 2003 Influenza Vaccine 03/21/2024 COVID-19 Vaccine (1 - 2023-2 5 season) 2024 RSV Vaccine 60 years and old er and Patients (1 - 1-dose 75+ series) 2028 Hepatitis B Vaccines Aged Out No long er eligible based on patient's age to complete this topic Procedures Procedure Name Priority Date/Time Associated Diagnosis Comments URINE CULTURE Routine 10/13/2024 12:23 PM EST Dysuria POCT URINALYSIS DIPSTICK, AUTOMATED Routine 10/13/2024 12:17 PM EST Dysuria from Last 3 Months Results * URINE CULTURE (10/13/2024 12:23 PM EST) Culture SEE NOTE The Scene Comment: ??CULTURE, URINE, ROUTINE ?Micro Number: ?[id number] ??Test Status: ? Final ??Specimen Source: ?? Urine ??Specimen Quality: ??Adequate ??Result: ?No Growth Microbiology 10/13/2024 12:2 3 PM EST 10/14/2024 12:21 AM EST Carmelita Sanford PA-C LAB AMB MICRO ORDERA BLES Performing Organization Address City/State/[facility] Co de Phone Number [employer] [address] [place] [phone] * (ABNORMAL) POCT Urinalysis Dipstick, Automated (10/13/2024 12:17 PM EST) Source, UA Clean Catch Color, UA Other(A) Yellow & Clear, Yellow Clarity, UA Clear Clear Glucose, UA Negative Negative Bilirubin, UA Small (+)(A) Negative Ketones, UA Large (>+160)(A) Negative Spec Grav, UA 1.025 1.005, 1.010, 1.015, 1.020, 1.025 Blood, UA Negative Negative pH, UA 6.0 5.0, 5.5, 6.0, 6.5, 7.0, 7.5, 8.0 Protein, UA 15 (+)(A) Negative Urobilinogen, UA 1.0 0.2, 1.0 Nitrite, UA Negative Negative Leukocyte Esterase, UA Trace(A) Negative Lot Number [id number] Civil Estimator [place] Urine 10/13/2024 12:1 7 PM EST Carmelita Sanford PA-C POINT OF CARE TEST O RDERABLES from Last 3 Months Care Teams Fans Clerk Relationship Specialty Start Date End Date Unknown Unknow Provider Address PCP - General 10/13/24
--- OUTSIDE RECORDS SUMMARY | 2024-10-16 16:49 | XMS_ITS | Encounter Summary ---
Author Organization [facility] Address [address] [place] [address] Care Team Providers Care Hand Router Operator Name Role Phone Unknown Primary Care Provider [phone] Reason for Visit * Reason Comments Urinary Tract Infection Dysuria, itching , and incontinence for 5 days. Encounter Details Date Type Department Care Team (Late st Contact Info) Description 10/13/2024 12:00 PM EST Office Visit [facility] [address] [phone] Otto Tian MD [address] [place] [phone] Carmelita Sanford PA-C [address] [place] [phone] Dysuria (Primary Dx) Social History Tobacco Use Types Packs/Day Years Used Date Smoking Tobacco: Never Assessed Sex and Gender Information Value Date Recorded Sex Assigned at Not on file Gender Identity Not on file Sexual Orientation Not on file documented as of this encounter Last Filed Vital Signs Vital Sign Reading Time Taken Comments Blood Pressure 122/77 10/13/2024 11:58 AM EST Pulse 86 10/13/2024 11:58 AM EST Temperature 36.9 ??C (98.4 ??F) 10/13/2024 11:[address] Respiratory Rate 14 10/13/2024 11:58 AM EST Oxygen Saturation 98% 10/13/2024 11:58 AM EST Inhaled Oxygen Concentration - - Weight - - Height - - Body Mass Index - - documented in this encounter Progress Notes * Carmelita Sanford PA-C - 10/13/2024 11:58 AM EST Assessment & Plan & Data Synthesis Geovanny was seen today for urinary tract infection. Diagnoses and all orders for this visit: Dysuria - POCT Urinalysis Dipstick, Automated - URINE CULTURE - sulfamethoxazole-trimethoprim (BACTRIM DS,SEPTRA DS) 800-160 MG per tablet; Take 1 tablet by mouth 2 (two) times a day. Medical Decision Making Vitals reviewed, patient is afebrile with no signs of hypotension. Normal abdominal exam, no evidence of CVA tenderness on exam. No other systemic complaints reported. Urinalysis indicated, results show + leukocytes and no nitrites. Will send out urine culture to confirm true UTI and check susceptib ility. Low suspicion for pyelonephritis, nephrolithiasis. Will plan to treat this as uncomplicated cystitis with Bactrim to treat for suspected acute cystitis and also to cover if there is associatedprostate involvement. Strict ER warnings given for fever with urinary or abdominal complaints, flank pain, hematuria, nausea/vomiting, presyncope or syncope. Patient was informed that they can returnto this clinic or their primary care provider for new or persisting symptoms. *Please note that this documentation was created using medical dictation software and may contain errors with grammar, words, or numbers. For any clarification regarding the medical documentation in this chart, please contact me.* Communication barriers and lifestyle preferences were addressed with the patient. The care plan including medications and self-management goals were reviewed to the best of the patient's ability. Allquestions and concerns were answered. Patient and/or family verbalized understanding of the plan ofcare. Subjective History of present illness: Chief Complaint Patient presents with Urinary Tract Infection Dysuria, itching, and incontinence for 5 days. History Provided by: Patient's daughter and History Limited by: Vice President Payment: None Geovanny Pappas is 69 y.o. male, with PMHx of anoxic brain injury, presenting with complaints of dysuria x5 days. Associated symptoms include urinary incontinence, more narrow urine flow, incomplete bladder emptying sensation, or penile itching. No history of prostate conditions. No prior history of UTIs. Patient's daughter states her parents are in town visiting from [place]. No history of kidney stonesor kidney infections. Denies sx of fever, chills, abdominal pain, nausea, vomiting, flank pain, hematuria. Pertinent list of positive and negative symptoms listed below. History reviewed. No pertinent past medical history. Review of Systems: Review of Systems Constitutional: Negative for chills and fever. Gastrointestinal: Negative for abdominal pain, nausea and vomiting. Genitourinary: Positive for dysuria and frequency. Negative for flank pain and hematuria. (+) Urinary incontinence (+) Narrow urine flow (+) incomplete emptying sensation Skin: Negative for rash. Objective Physical Exam: BP 122/77 (BP Location: Right arm, Patient Position: Sitting, Cuff Size: Large) Pulse 86 Temp 98.4 ??F (36.9 ??C) (Oral) Resp 14 SpO2 98% Vital signs reviewed. Physical Exam Vitals and nursing note reviewed. Constitutional: General: He is not in acute distress. Appearance: Normal appearance. He is not ill-appearing. HENT: Head: Normocephalic and atraumatic. Eyes: Conjunctiva/sclera: Conjunctivae normal. Pulmonary: Effort: No respiratory distress. Abdominal: Tenderness: There is no abdominal tenderness. There is no right CVA tenderness, left CVA tenderness, guarding or rebound. Negative signs include Wayne's sign, Rovsing's sign and McBurney's sign. Musculoskeletal: Cervical back: Normal range of motion. Neurological: Mental Status: He is alert. Recent Results (from the past 4 hour(s)) POCT Urinalysis Dipstick, Automated Collection Time: 10/13/24 12:17 PM Result Value Ref Range Source, UA Clean Catch Color, UA Other (A) Yellow & Clear, Yellow Clarity, UA Clear Clear Glucose, UA Negative Negative Bilirubin, UA Small (+) (A) Negative Ketones, UA Large (>+160) (A) Negative Spec Grav, UA 1.025 1.005, 1.010, 1.015, 1.020, 1.025 Blood, UA Negative Negative pH, UA 6.0 5.0, 5.5, 6.0, 6.5, 7.0, 7.5, 8.0 Protein, UA 15 (+) (A) Negative Urobilinogen, UA 1.0 0.2, 1.0 Nitrite, UA Negative Negative Leukocyte Esterase, UA Trace (A) Negative Lot Number [id number] Boating Safety Officer [place] Carmelita Sanford PA-C 10/13/2024 12:31 PM documented in this encounter Plan of Treatment Not on file documented as of this encounter Procedures Procedure Name Priority Date/Time Associated Diagnosis Comments URINE CULTURE Routine 10/13/2024 12:23 PM EST Dysuria POCT URINALYSIS DIPSTICK, AUTOMATED Routine 10/13/2024 12:17 PM EST Dysuria documented in this encounter Results * URINE CULTURE (10/13/2024 12:23 PM EST) Pathologist [facility] Culture SEE NOTE Q-go Comment: ??CULTURE, URINE, ROUTINE ?Micro Number: ?[id number] ??Test Status: ? Final ??Specimen Source: ?? Urine ??Specimen Quality: ??Adequate ??Result: ?No Growth Microbiology 10/13/2024 12:2 3 PM EST 10/14/2024 12:21 AM EST Carmleita Sanford PA-C LAB AMB MICRO [facility] [address] [place] [phone] * (ABNORMAL) POCT Urinalysis Dipstick, Automated (10/13/2024 [...] Leukocyte Esterase, UA Trace(A) Negative Lot Number [id number] Boating Safety Officer [place] Urine 10/13/2024 12:1 7 PM EST Carmelita Sanford PA-C POINT OF CARE TEST O RDERABLES documented in this encounter Visit Diagnoses Diagnosis Dysuria- Primary documented in this encounter Care Teams Hand Router Operator Relationship Specialty Start Date End Date Unknown Unknow Provider Address PCP - General 10/13/24 documented as of this encounter
--- OUTSIDE RECORDS SUMMARY | 2024-10-16 16:49 | XMS_ITS | Encounter Summary ---
Author Organization [facility] Address [address] [place] [address] Care Team Providers Care Stockroom Keeper Name Role Phone Unknown Primary Care Provider [phone] Encounter Details Date Type Department Care Team (Latest Contact Info) Description 10/13/2024 Travel Social History Tobacco Use Types Packs/Day Years Used Date Smoking Tobacco: Never Assessed Sex and Gender Information Value Date Recorded Sex Assigned at Not on file Gender Identity Not on file Sexual Orientation Not on file documented as of this encounter Plan of Treatment Not on file documented as of this encounter Visit Diagnoses Not on filedocumented in this encounter Care Teams Stockroom Keeper Relationship Specialty Start Date End Date Unknown Unknow Provider Address PCP - General 10/13/24 documented as of this encounter
--- OUTSIDE RECORDS SUMMARY | 2024-10-16 16:49 | XMS_ITS | Encounter Summary ---
Author Organization [facility] Address [address] [place] [address] Care Team Providers Care Atm Mechanic Name Role Phone Unknown Primary Care Provider [phone] Encounter Details Date Type Department Care Team (Late st Contact Info) Description 10/13/2024 Scanned Document [address] [place] [phone] Provider, Generic Social History Tobacco Use [...] on filedocumented in this encounter Care Teams Atm Mechanic Relationship Specialty Start Date End Date Unknown Unknow Provider Address PCP - General 10/13/24 documented as of this encounter
== END 2024-10-16 13:41 | disposition home or self-care (01) ==
LOC: HO.HMGCX 13:40
PROVIDERS: PCP Internal Medicine; Visit Provider Internal Medicine
DX: Z13.89 Encounter for screening for other disorder (principal)

== ENCOUNTER 2024-10-17 11:40 | Outpatient (AMB) | payer MEDICARE, MEDICAID, SELFPAY ==
--- NOTE | 2024-10-17 11:42 | A.OFFPC_ITS ---
Vital Signs 10/17/24 11:44 Height 5 ft 7 in Weight 214 lb BMI 33.5 BP 104/60 Blood Pressure Location Lt brachial Position Sitting Respiration 20 Pulse 90 Pulse Source Pulse Oximeter Temp 98.3 F Temp Source Oral Pulse Oximetry (%) 96 Oxygen Delivery Method Room Air Intake Visit Reasons: Follow up on urinary issues Intake Note: Pt is here today for a follow up visit on urinary issues. Allergies No Known Allergies Allergy (Verified 10/17/24 11:51) Medication List - Last Reconciled 10/17/24 by Gisela Jade MD azelaic acid 15% (Finacea) 1 appl topical BID blood sugar diagnostic (CellectisTouch Verio test strips) Test blood sugar once a day blood-glucose meter (CellectisTouch Verio Meter) As directed cholecalciferol (vitamin D3) (Vitamin D3) 25 mcg PO DAILY divalproex ER 1,000 mg PO BEDTIME dulaglutide (Trulicity) 4.5 mg (0.5 mL) subcut QWEEK famotidine 20 mg PO BEDTIME finasteride 5 mg PO DAILY lancets Test blood sugar once a day levetiracetam mg PO metformin ER 750 mg PO BID metoprolol tartrate 12.5 mg (1/2 x 25 mg) PO DAILY metronidazole 0.75% (MetroCream) 1 appl topical BEDTIME oxcarbazepine 300 mg PO BID rosuvastatin 20 mg PO DAILY tamsulosin (Flomax) 0.4 mg PO BEDTIME Tobacco use date assessed: 10/17/24 Fall risk assessment: No Falls in past year Last assessed Fall Risk: 10/17/24 Dental Screening Dental Screen Date: 10/17/24 Did you have a dental visit in the last 12 months?: No Did you have a dental problem in the last 6 months where you did not have access to dental care?: No Was dental information given to patient?: Patient declined HPI Follow up on urinary issues HPI Details Patient presents for the follow-up of urgent care visit in [place] last week for acute episode of dysuria, increased urinary frequency and hematuria. Patient was diagnosed with UTI started antibiotic 3 days ago. Flomax was started 2 days ago and patient noticed improvement in urinary frequency. Patient stopped taking antibiotic yesterday because his had received a phone call from urgent care notifying the urine culture were negative. Patient denies nausea vomiting fever chills back pain abdominal or pelvic pain. Type 2 diabetes is well-controlled by patient has not been losing more weight on Trulicity and is interested in trying Mounjaro to facilitate weight lost and improve glycemic control. [facility] Medical History Annual physical exam Colonoscopy refused Colon cancer screening Type 2 diabetes mellitus CAD (coronary artery disease) Seizure Hyperlipidemia Cardiac arrest HTN (hypertension) Family History Father Diabetes Stroke Mother Hypertension Social History Housing: House Patient Tobacco Use Status: Former Tobacco user e-Cigarette/Vaping Use: Never Used service: No Current occupational status: retired Cognitive needs: No Hearing needs: Yes Vision needs: No Questionnaire PHQ-9 Over the last 2 weeks, how often have you been bothered by any of the following problems? 1. Little interest or pleasure in doing things: not at all 2. Feeling down, depressed, or hopeless: not at all 3. Trouble falling or staying asleep, or sleeping too much: not at all 4. Feeling tired or having little energy: not at all 5. Poor appetite or overeating: not at all 6. Feeling bad about yourself - or that you are a failure or have let yourself or your family down: not at all 7. Trouble concentrating on things, such as reading the newspaper or watching television: not at all 8. Moving or speaking so slowly that other people could have noticed. Or the opposite - being so fidgety or restless that you have been moving around a lot more than usual: not at all 9. Thoughts that you would be better off or of hurting yourself in some way: not at all Total score: 0 Depression Screening Interpretation: Negative Depression Screening Done: Yes 81917 - PHQ-9 Billing: Yes Source: Developed by Drs. Flo Holley, Torrie Dave, Mohit Martino and colleagues, with an educational deniz from [employer]. Thrive Questionnaire Date Thrive assessed: 10/17/24 I am a: Patient What is your living situation today?: I have a steady place to live Within the past 12 months, did the food you bought not last and you didn't have the money to get more?: I choose not to answer this question Within the past 12 months, did you worry whether your food would run out before you got money to buy more?: I choose not to answer this question Do you have trouble paying for medicines?: I choose not to answer this question Do you have trouble getting transportation to medical appointments?: I choose not to answer this question Do you have trouble paying your heating and electricity bill?: I choose not to answer this question Do you have trouble taking care of your child, family member or friend?: I choose not to answer this question Do you have trouble with day-to-day activities such as bathing, preparing meals, shopping, managing finances, etc.?: I choose not to answer this question Are you currently unemployed and looking for a job?: I choose not to answer this question Are you interested in more education?: I choose not to answer this question Please select the resources that you would like help with: None Currently or been in a relationship where the following occur: No concerns reported THRIVE Score: 0 AUDIT C Alcohol Use Questionnaire (AUDIT-C) 1. How often do you have a drink containing alcohol?: Never 3. How often do you have six or more drinks on one occasion?: Never Total Score: 0 JOELLE-7 AMB Questionnaire JOELLE-7 Date JOELLE - 7 assessed: 10/17/24 Feeling nervous, anxious, or on edge: 0 = Not at all Not being able to stop or control worryin = Not at all Worrying too much about different things: 0 = Not at all Trouble relaxin = Not at all Being so restless that it is hard to sit still: 0 = Not at all Becoming easily annoyed or irritable: 0 = Not at all Feeling afraid as if something awful might happen: 0 = Not at all Total JOELLE-7 score (0-4 normal; 5-9 mild; 10-14 moderate; 15-21 severe): 0 Source: Developed by Drs. Flo Hollye, Torrie Dave, Mohit romo nd colleagues, with an educational deniz from [employer]. JOELLE-7 Assessment Billing JOELLE-7 Assessment Tool: JOELLE-7 Assessment 16944 Review of Systems Const All systems reviewed & are unremarkable except as noted in HPI and below Eyes Reports no additional complaints ENT Reports no additional complaints Card Reports no additional complaints Resp Reports no additional complaints GI Reports no additional complaints Reports no additional complaints Physical exam (Primary Care) Vital Signs: Last Vital Signs Temp 98.3 F 10/17/24 11:44 Pulse 90 10/17/24 11:44 Resp 20 10/17/24 11:44 BP 104/60 10/17/24 11:44 Pulse Ox 96 10/17/24 11:44 Oxygen Delivery Method Room Air 10/17/24 11:44 BMI result Body Mass Index 33.5 Tobacco/Smoking Status: Tobacco use Status Tobacco use date assessed 10/17/24 10/17/24 11:54 Patient Tobacco Use Status Former Tobacco user 10/17/24 11:44 e-Cigarette/Vaping Use Never Used 10/17/24 11:44 PHQ-9: PHQ-9 Score PHQ-9: Total score 0 10/17/24 11:56 Depression Screening Interpretation: Negative Thrive Assessment: Date of Thrive Assessment Date Thrive assessed 10/17/24 10/17/24 11:56 Currently or been in a relationship where the following occur: No concerns re ported Const General: no acute distress HENMT Head: Yes normal to inspection Eyes General: appearance normal, both eyes and all related structures Neck Neck: Yes supple Resp Effort & Inspection: normal respiratory effort Auscultation: clear to auscultation bilaterally Cardio Rhythm: regular rhythm Heart sounds: S1 normal heart sound present and S2 normal heart sound present GI Inspection: Yes normal to inspection Palpation (GI): Soft to palpation Percussion: Yes normal to percussion Auscultation: normal bowel sounds General: Yes no CVA tenderness Back/Spine/Pelvis Back: no CVA tenderness Coding Level of Care Code Est Pt Level 4 (11654) Diagnoses Microscopic hematuria R31.29 Increased urinary frequency R35.0 Type 2 diabetes mellitus E11.9 Additional Codes JOELLE-7 Assessment Billing - JOELLE-7 Assessment Tool: JOELLE-7 Assessment 89136 ([id number]) PHQ-9 - 09064 - PHQ-9 Billing: Yes ([id number]) Assessment & Plan Assessment & Plan (1) Microscopic hematuria: Code(s): R31.29 - Other microscopic hematuria Category: Medical Plan: Patient was advised to restart antibiotic continue Flomax and finasteride. Urinalysis and urine culture will be obtained 1 week after completing the treatment for UTI. If there is persistent microhematuria patient will be referred to Urology for cystoscopy. Renal ultrasound will be obtained to rule out for nephrolithiasis (2) Increased urinary frequency: Code(s): R35.0 - Frequency of micturition Category: Medical Plan: Continue Flomax and finasteride will be added (3) Type 2 diabetes mellitus: Code(s): E11.9 - Type 2 diabetes mellitus without complications Category: Medical Plan: Trulicity will be changed to Mounjaro to improve glycemic control and weight loss. Continue ADA diet increase physical activity decrease caloric intake follow-up in December for a physical. Orders: Orders Urine Culture 2 Weeks R31.29 - Other microscopic hematuria, R35.0 - Frequency of micturition US renal BI Today R31.29 - Other microscopic hematuria UA w Microscopic 2 Weeks R31.29 - Other microscopic hematuria, R35.0 - Frequency of micturition Medications: New finasteride 5 mg PO DAILY 90 tabs 3RF Mounjaro (tirzepatide) 12.5 mg (0.5 mL) subcut QWEEK 6 mL 0RF NS
[2024-10-17 11:44] VITALS: BP 104/60; PULSE 90; RESP 20; TEMP 36.8; O2SAT 96; BMI 33.5
--- OUTSIDE RECORDS SUMMARY | 2024-10-17 14:11 | XMS_ITS | Clinical Summary ---
Author Organization [facility] Address [address] [place] [address] Care Team Providers Care Children Teacher Name Role Phone Unknown Primary Care Provider [phone] Allergies No known active allergies Medications Medication Sig Dispensed Refills Start Date End Date Status cholecalciferol (CHOLECALCIFEROL) 250 MCG (60708 UT) capsule Take 1 capsule by mouth. [...] Description 10/13/2024 12:00 PM EST Office Visit [facility] [address] [place] [phone] Otto Tian MD George, Stella, PA-C Dysuria (Primary Dx) 10/13/2024 Scanned Document [facility] [address] [facility] [address] [place] [address] Provider, Generic 10/13/2024 Travel 10/13/2024 Scanned Document [facility] [address] [facility] [address] [place] [address] Provider, Generic from Last 3 Months [...] (10/13/2024 12:23 PM EST) Culture SEE NOTE [employer] Comment: ??CULTURE, URINE, ROUTINE ?Micro Number: ?[id number] ??Test Status: ? Final ??Specimen Source: ?? Urine ??Specimen Quality: ??Adequate ??Result: ?No Growth Microbiology 10/13/2024 12:2 3 PM EST 10/14/2024 12:21 AM EST Carmelita Sanford PA-C LAB AMB MICRO ORDERA BLES Performing Organization Address City/State/[facility] Co de Phone Number [place] [address] [place] [phone] * (ABNORMAL) POCT Urinalysis Dipstick, Automated (10/13/2024 [...] Leukocyte Esterase, UA Trace(A) Negative Lot Number [id number] Capacity Planning Manager [place] Urine 10/13/2024 12:1 7 PM EST Carmelita Sanford PA-C POINT OF CARE TEST O RDERABLES from Last 3 Months Care Teams Children Teacher Relationship Specialty Start Date End Date Unknown Unknow Provider Address PCP - General 10/13/24
--- OUTSIDE RECORDS SUMMARY | 2024-10-17 14:11 | XMS_ITS | Encounter Summary ---
Author Organization [facility] Address [address] [place] [address] Care Team Providers Care Gambling Counsellor Name Role Phone Unknown Primary Care Provider [phone] Encounter Details Date Type Department Care Team [...] on filedocumented in this encounter Care Teams Gambling Counsellor Relationship Specialty Start Date End Date Unknown Unknow Provider Address PCP - General 10/13/24 documented as of this encounter
--- OUTSIDE RECORDS SUMMARY | 2024-10-17 14:11 | XMS_ITS | Encounter Summary ---
Author Organization [facility] Address [address] [place] [address] Care Team Providers Care Laboratory Technology Teacher Name Role Phone Unknown Primary Care Provider [phone] Encounter Details Date Type Department Care Team (Late st Contact Info) Description 10/13/2024 Scanned Document [address] [place] [phone] Provider, Generic Social History Tobacco Use [...] on filedocumented in this encounter Care Teams Laboratory Technology Teacher Relationship Specialty Start Date End Date Unknown Unknow Provider Address PCP - General 10/13/24 documented as of this encounter
--- OUTSIDE RECORDS SUMMARY | 2024-10-17 14:11 | XMS_ITS | Encounter Summary ---
Author Organization [facility] Address [address] [place] [address] Care Team Providers Care Spring Inspector Name Role Phone Unknown Primary Care Provider [phone] Encounter Details Date Type Department Care Team (Late st Contact Info) Description 10/13/2024 Scanned Document [address] [place] [phone] Provider, Generic Social History Tobacco Use [...] on filedocumented in this encounter Care Teams Spring Inspector Relationship Specialty Start Date End Date Unknown Unknow Provider Address PCP - General 10/13/24 documented as of this encounter
--- OUTSIDE RECORDS SUMMARY | 2024-10-17 14:11 | XMS_ITS | Encounter Summary ---
Author Organization [facility] Address [address] [place] [address] Care Team Providers Care Biblical Studies Professor Name Role Phone Unknown Primary Care Provider [phone] Reason for Visit * Reason Comments Urinary Tract Infection Dysuria, itching , and incontinence for 5 days. Encounter Details Date Type Department Care Team (Late st Contact Info) Description 10/13/2024 12:00 PM EST Office Visit [facility] [address] [phone] Otto Tian MD [address] [place] [phone] Carmelita Sanford PA-C [address] [place] [phone] Dysuria (Primary Dx) Social History Tobacco [...] by: Patient's daughter and History Limited by: Glove Boarder: None Geovanny Pappas is 69 y.o. male, with PMHx of anoxic brain injury, presenting with complaints of dysuria x5 days. Associated symptoms include urinary incontinence, more narrow urine flow, incomplete bladder emptying sensation, or penile itching. No history of prostate conditions. No prior history of UTIs. Patient's daughter states her parents are in town visiting from [place]. No history of kidney stonesor kidney infections. [...] Esterase, UA Trace (A) Negative Lot Number [id number] Streetcar Repairer Helper [place] Carmelita Sanford PA-C 10/13/2024 12:31 PM documented in this encounter Plan of Treatment Not on file documented as of this encounter Procedures Procedure Name Priority Date/Time Associated Diagnosis Comments URINE CULTURE Routine 10/13/2024 12:23 PM EST Dysuria POCT URINALYSIS DIPSTICK, AUTOMATED Routine 10/13/2024 12:17 PM EST Dysuria documented in this encounter Results * URINE CULTURE (10/13/2024 12:23 PM EST) Pathologist [facility] Culture SEE NOTE [employer] Comment: ??CULTURE, URINE, ROUTINE ?Micro Number: ?[id number] ??Test Status: ? Final ??Specimen Source: ?? Urine ??Specimen Quality: ??Adequate ??Result: ?No Growth Microbiology 10/13/2024 12:2 3 PM EST 10/14/2024 12:21 AM EST Carmelita Sanford PA-C LAB AMB MICRO WHITNEY RODRIGUEZ [place] [address] [place] [phone] * (ABNORMAL) POCT Urinalysis Dipstick, Automated (10/13/2024 [...] Leukocyte Esterase, UA Trace(A) Negative Lot Number [id number] Streetcar Repairer Helper [place] Urine 10/13/2024 12:1 7 PM EST Carmelita Sanford PA-C POINT OF CARE TEST O RDERABLES documented in this encounter Visit Diagnoses Diagnosis Dysuria- Primary documented in this encounter Care Teams Biblical Studies Professor Relationship Specialty Start Date End Date Unknown Unknow Provider Address PCP - General 10/13/24 documented as of this encounter
== END 2024-10-17 12:27 | disposition home or self-care (01) ==
PROVIDERS: PCP Internal Medicine; Visit Provider Internal Medicine
DX: R31.29 Other microscopic hematuria (principal); R35.0 Frequency of micturition; E11.9 Type 2 diabetes mellitus without complications

== ENCOUNTER → 2024-10-17 11:40 | Outpatient (BNVA) | payer MEDICARE, MEDICAID, SELFPAY | PROVIDERS: PCP Internal Medicine; Visit Provider Internal Medicine | DX: R31.29 Other microscopic hematuria (principal); R35.0 Frequency of micturition; E11.9 Type 2 diabetes mellitus without complications | CPT/HCPCS: 96127; 99212 ==

== ENCOUNTER 2024-10-29 13:39 | Outpatient (REF) | payer MEDICARE, MEDICAID, SELFPAY ==
--- NOTE | ~2024-10-29 | US_ITS ---
EXAMINATION: US KIDNEY BILATERAL HISTORY: R31.29 - Other microscopic hematuria TECHNIQUE: Real-time grayscale ultrasound imaging of the kidneys was performed and images were reviewed. COMPARISON: There are no prior studies for comparison. FINDINGS: Right kidney: The right kidney measures 11.2 x 5.3 x 6.1 cm. Renal parenchymal echotexture and thickness are normal. There are no masses. There is no hydronephrosis or renal calculi. Left Kidney: The left kidney measures 12.0 x 5.8 x 5.6 cm. Renal parenchymal echotexture and thickness are normal. There are no masses. There is no hydronephrosis or renal calculi. US/US renal BI IMPRESSION: Unremarkable renal ultrasound. Electronically signed by: Flo Sanchez MD 10/29/2024 03:26 PM EDT
--- OUTSIDE RECORDS SUMMARY | 2024-10-29 16:35 | XMS_ITS | Encounter Summary ---
Author Organization [facility] Address [address] [place] [address] Care Team Providers Care Lard Tub Washer Name Role Phone Unknown Primary Care Provider [phone] Reason for Visit * Reason Comments Urinary Tract Infection Dysuria, itching , and incontinence for 5 days. Encounter Details Date Type Department Care Team (Late st Contact Info) Description 10/13/2024 12:00 PM EST Office Visit [facility] [address] [phone] Otto Tian MD [address] [place] [phone] Carmelita Sanford PA-C [address] [place] [phone] Dysuria (Primary Dx) Social History Tobacco [...] by: Patient's daughter and History Limited by: Gem Carver: None Geovanny Pappas is 69 y.o. male, with PMHx of anoxic brain injury, presenting with complaints of dysuria x5 days. Associated symptoms include urinary incontinence, more narrow urine flow, incomplete bladder emptying sensation, or penile itching. No history of prostate conditions. No prior history of UTIs. Patient's daughter states her parents are in town visiting from [place]. No history of kidney stonesor kidney infections. [...] Esterase, UA Trace (A) Negative Lot Number [id number] Painter Drum [place] Carmelita Sanford PA-C 10/13/2024 12:31 PM documented in this encounter Plan of Treatment Not on file documented as of this encounter Procedures Procedure Name Priority Date/Time Associated Diagnosis Comments URINE CULTURE Routine 10/13/2024 12:23 PM EST Dysuria POCT URINALYSIS DIPSTICK, AUTOMATED Routine 10/13/2024 12:17 PM EST Dysuria documented in this encounter Results * URINE CULTURE (10/13/2024 12:23 PM EST) Pathologist [facility] Culture SEE NOTE [employer] Comment: ??CULTURE, URINE, ROUTINE ?Micro Number: ?[id number] ??Test Status: ? Final ??Specimen Source: ?? Urine ??Specimen Quality: ??Adequate ??Result: ?No Growth Microbiology 10/13/2024 12:2 3 PM EST 10/14/2024 12:21 AM EST Carmelita Sanford PA-C LAB AMB MICRO WHITNEY RODRIGUEZ [facility] [address] [place] [phone] * (ABNORMAL) POCT Urinalysis Dipstick, Automated (10/13/2024 [...] Leukocyte Esterase, UA Trace(A) Negative Lot Number [id number] Painter Drum [place] Urine 10/13/2024 12:1 7 PM EST Carmelita Sanford PA-C POINT OF CARE TEST O RDERABLES documented in this encounter Visit Diagnoses Diagnosis Dysuria- Primary documented in this encounter Care Teams Lard Tub Washer Relationship Specialty Start Date End Date Unknown Unknow Provider Address PCP - General 10/13/24 documented as of this encounter
--- OUTSIDE RECORDS SUMMARY | 2024-10-29 16:35 | XMS_ITS | Encounter Summary ---
Author Organization [facility] Address [address] [place] [address] Care Team Providers Care Bearing Ring Assembler Name Role Phone Unknown Primary Care Provider [phone] Encounter Details Date Type Department Care Team [...] on filedocumented in this encounter Care Teams Bearing Ring Assembler Relationship Specialty Start Date End Date Unknown Unknow Provider Address PCP - General 10/13/24 documented as of this encounter
--- OUTSIDE RECORDS SUMMARY | 2024-10-29 16:35 | XMS_ITS | Encounter Summary ---
Author Organization [facility] Address [address] [place] [address] Care Team Providers Care Captain Fire Prevention Bureau Name Role Phone Unknown Primary Care Provider [phone] Encounter Details Date Type Department Care Team (Late st Contact Info) Description 10/13/2024 Scanned Document [address] [place] [phone] Provider, Generic Social History Tobacco Use [...] on filedocumented in this encounter Care Teams Captain Fire Prevention Bureau Relationship Specialty Start Date End Date Unknown Unknow Provider Address PCP - General 10/13/24 documented as of this encounter
--- OUTSIDE RECORDS SUMMARY | 2024-10-29 16:36 | XMS_ITS | Encounter Summary ---
Author Organization [facility] Address [address] [place] [address] Care Team Providers Care Public Relations Representative Name Role Phone Unknown Primary Care Provider Encounter Details Date Type Department Care Team (Late st Contact Info) Description 10/13/2024 Scanned Document [address] [place] [phone] Provider, Generic Social History Tobacco Use [...] on filedocumented in this encounter Care Teams Public Relations Representative Relationship Specialty Start Date End Date Unknown Unknow Provider Address PCP - General 10/13/24 documented as of this encounter
--- OUTSIDE RECORDS SUMMARY | 2024-10-29 16:36 | XMS_ITS | Clinical Summary ---
Author Organization [facility] Address [address] [place] [address] Care Team Providers Care Cnc Operator Name Role Phone Unknown Primary Care Provider [phone] Allergies No known active allergies Medications Medication Sig Dispensed Refills Start Date End Date Status cholecalciferol (CHOLECALCIFEROL) 250 MCG (91431 UT) capsule Take 1 capsule by mouth. 02/02/2024 Active divalproex er (DEPAKOTE ER) 500 MG [...] times a day. 14 tablet 10/13/2024 10/20/2024 Encounters Date Type Department Care Team Description 10/13/2024 12:00 PM EST Office Visit [facility] [address] [place] [phone] Otto Tian MD George, Stella, PA-C Dysuria (Primary Dx) 10/13/2024 Scanned Document [facility] [address] [facility] [address] [place] [address] Provider, Generic 10/13/2024 Travel 10/13/2024 Scanned Document [facility] [address] [facility] [address] [place] [address] Provider, Generic from Last 3 Months [...] 2) 2003 Influenza Vaccine 03/21/2024 COVID-19 Vaccine ( - 2023-2 5 season) 2024 RSV Vaccine [...] (10/13/2024 12:23 PM EST) Culture SEE NOTE [employer] Comment: ??CULTURE, URINE, ROUTINE ?Micro Number: ?[id number] ??Test Status: ? Final ??Specimen Source: ?? Urine ??Specimen Quality: ??Adequate ??Result: ?No Growth Microbiology 10/13/2024 12:2 3 PM EST 10/14/2024 12:21 AM EST Carmelita Sanford PA-C LAB AMB MICRO KAMRANA MICHAEL [employer] [address] [place] [phone] * (ABNORMAL) POCT Urinalysis Dipstick, Automated (10/13/2024 [...] Leukocyte Esterase, UA Trace(A) Negative Lot Number [id number] Health And Wellness Manager [place] Urine 10/13/2024 12:1 7 PM EST Carmelita Sanford PA-C POINT OF CARE TEST O RDERABLES from Last 3 Months Care Teams Cnc Operator Relationship Specialty Start Date End Date Unknown Unknow Provider Address PCP - General 10/13/24
[2024-10-29 17:00] LABS: Appearance Urine Clear; Color Urine Yellow; Glucose Urine UA Negative (Negative); Leukocyte Esterase Urine Negative (Negative); Nitrite Urine Positive (Negative); Specific Gravity - Urine >= 1.030 (1.005-1.025); UMIC TRIGGER UA YES; Urine Blood Negative (Negative); Urine Ketones 15 mg/dL (Negative); Urine Protein 30 (1+) mg/dL (Neg-Trace)
[2024-10-29 17:06] LABS: Bacteria Urine None Seen (None Seen)
== END 2024-10-29 13:40 | disposition home or self-care (01) ==
LOC: HO.HMGCX 13:39
PROVIDERS: PCP Internal Medicine; Visit Provider Internal Medicine
DX: R31.29 Other microscopic hematuria (principal); R35.0 Frequency of micturition
CPT/HCPCS: 76775; 81001; 87086

== ENCOUNTER → 2024-10-29 13:42 | Outpatient (BNV) | payer MEDICARE, MEDICAID, SELFPAY | PROVIDERS: PCP Internal Medicine; Visit Provider Radiology Diagnostic Radiology | DX: R31.29 Other microscopic hematuria (principal) | CPT/HCPCS: 76775 ==

== ENCOUNTER 2024-11-15 11:43 | Outpatient (REF) | payer MEDICARE, MEDICAID, SELFPAY ==
[2024-11-15 13:19] LABS: Appearance Urine Cloudy; Color Urine Dark Yellow; Glucose Urine UA Negative (Negative); Leukocyte Esterase Urine Small (1+) (Negative); Nitrite Urine Negative (Negative); PH 5.5 (5.0-9.0); Specific Gravity - Urine >= 1.030 (1.005-1.025); UMIC TRIGGER UA YES; Urine Blood Negative (Negative); Urine Ketones 15 mg/dL (Negative); Urine Protein 30 (1+) mg/dL (Neg-Trace)
[2024-11-15 13:44] LABS: Bacteria Urine None Seen (None Seen); Calcium Oxalate Crystals Urine Present; Hyaline Casts Urine 0-2 /LPF (0-2); RBC Urine 0-2 /HPF (0-2); Squamous Epithelial Cell Urine 0-2 /HPF (0-2)
== END 2024-11-15 11:44 | disposition home or self-care (01) ==
LOC: HO.HMGCLDS 11:43
PROVIDERS: PCP Internal Medicine; Visit Provider Internal Medicine
DX: R35.0 Frequency of micturition (principal)
CPT/HCPCS: 81001; 87086

== ENCOUNTER 2024-12-04 11:10 | Outpatient (AMB) | payer MEDICARE, MEDICAID, SELFPAY ==
[2024-12-04 11:39] VITALS: BP 108/78; PULSE 110; RESP 18; TEMP 36.6; O2SAT 95; BMI 28.5
--- NOTE | 2024-12-04 11:39 | MHC.PC.OV ---
Vital Signs 12/04/24 11:39 Height 5 ft 7 in Weight 182 lb BMI 28.5 BP 108/78 Blood Pressure Location Lt brachial Position Sitting Respiration 18 Pulse 110 H Pulse Source Pulse Oximeter Temp 97.9 F Temp Source Oral Pulse Oximetry (%) 95 Oxygen Delivery Method Room Air Intake Visit Reasons: Bilateral leg pain Intake Note: Pt is here today for a sick visit. Pt c/o bilateral leg pain and burning. Pt's states that pt has no appetite and is loosing weight. Allergies No Known Allergies Allergy (Verified 12/04/24 11:40) Medication List - Last Reconciled 12/04/24 by Gisela Jade MD azelaic acid 15% (Finacea) 1 appl topical BID blood sugar diagnostic (OneTouch Verio test strips) Test blood sugar once a day blood-glucose meter ([employer] InternationalTouch Verio Meter) As directed cholecalciferol (vitamin D3) (Vitamin D3) 25 mcg PO DAILY divalproex ER 1,000 mg PO BEDTIME famotidine 20 mg PO BEDTIME finasteride 5 mg PO DAILY lancets Test blood sugar once a day levetiracetam mg PO metformin ER 750 mg PO BID metoprolol tartrate 12.5 mg (1/2 x 25 mg) PO DAILY metronidazole 0.75% (MetroCream) 1 appl topical BEDTIME Mounjaro (tirzepatide) 12.5 mg (0.5 mL) subcut QWEEK NS Mounjaro (tirzepatide) 5 mg (0.5 mL) subcut QWEEK NS oxcarbazepine 300 mg PO BID rosuvastatin 20 mg PO DAILY tamsulosin (Flomax) 0.8 mg (2 x 0.4 mg) PO BEDTIME Tobacco use date assessed: 12/04/24 Dental Screening Dental Screen Date: 10/17/24 HPI Bilateral leg pain HPI Details Patient presents complaining of bilateral leg pain and swelling worse when starting to walk for few weeks. Patient has been taking 12.5 mg of Mounjaro but his noticed complete lack of appetite significantly decreased p.o. intake and patient is becoming lethargic and having significant constipation. Patient denies abdominal pain nausea vomiting. He continues to have increase urination but able to control it and he denies dysuria. [facility] Medical History Annual physical exam Colonoscopy refused Colon cancer screening Type 2 diabetes mellitus CAD (coronary artery disease) Seizure Hyperlipidemia Cardiac arrest HTN (hypertension) Family History Father Diabetes Stroke Mother Hypertension Social History Housing: House Patient Tobacco Use Status: Former Tobacco user e-Cigarette/Vaping Use: Never Used service: No Current occupational status: retired Cognitive needs: No Hearing needs: Yes Vision needs: No Questionnaire Thrive Questionnaire Date Thrive assessed: 12/04/24 JOELLE-7 AMB Questionnaire JOELLE-7 Date JOELLE - 7 assessed: 10/17/24 Source: Developed by Drs. Flo Holley, Torrie Dave, Mohit Martino and colleagues, with an educational deniz from [employer]. Review of Systems Const All systems reviewed & are unremarkable except as noted in HPI and below ENT Reports no additional complaints Card Reports no additional complaints Resp Reports no additional complaints GI Reports no additional complaints Reports no additional complaints Physical exam (Primary Care) Vital Signs: Last Vital Signs Temp 97.9 F 12/04/24 11:39 Pulse 110 H 12/04/24 11:39 Resp 18 12/04/24 11:39 BP 108/78 12/04/24 11:39 Pulse Ox 95 12/04/24 11:39 Oxygen Delivery Method Room Air 12/04/24 11:39 BMI result Body Mass Index 28.5 Tobacco/Smoking Status: Tobacco use Status Tobacco use date assessed 12/04/24 12/04/24 11:57 Patient Tobacco Use Status Former Tobacco user 12/04/24 11:41 e-Cigarette/Vaping Use Never Used 12/04/24 11:41 Thrive Assessment: Date of Thrive Assessment Date Thrive assessed 12/04/24 12/04/24 11:41 Const General: no acute distress HENMT Head: Yes normal to inspection Eyes General: appearance normal, both eyes and all related structures Neck Neck: Yes supple Resp Effort & Inspection: normal respiratory effort Auscultation: clear to auscultation bilaterally Cardio Rhythm: regular rhythm Heart sounds: S1 normal heart sound present and S2 normal heart sound present GI Inspection: Yes normal to inspection Palpation (GI): Soft to palpation Percussion: Yes normal to percussion Auscultation: normal bowel sounds Extrem Other: 1+ pitting edema no erythema warmth of both lower extremities there chronic atrophic venous stasis changes and visible varicose veins Immunizations pneumoc 20-chely conj-dip cr(PF) 0.5 mL IM syringe Performing Provider: Gisela Jade MD Performing Location: [facility] Administered by: ARELY Pink on 12/04/24 12:41 Dose Route Admin Location Dispensed Lot Number Expiration Date NDC Senior Librarian 0.5 mL IM Left Deltoid 0.5 mL [id number] 10/18/25 [id number] [email or web address] VIS Given Date VIS Provided VIS Publication Date 12/04/24 Single Vaccine 21 Eligibility Eligibility Date Funding Source Not [facility] Eligible 12/04/24 Private Coding Level of Care Code Est Pt Level 4 (82144) Diagnoses DVT (deep venous thrombosis) I82.409 Varicose veins of bilateral lower extremities with pain I83.813 Increased urinary frequency R35.0 Type 2 diabetes mellitus E11.9 Assessment & Plan Assessment & Plan (1) DVT (deep venous thrombosis): Code(s): I82.409 - Acute embolism and thrombosis of unspecified deep veins of unspecified lower extremity Category: Medical Plan: Obtain ultrasound of both lower extremities to rule out DVT. (2) Varicose veins of bilateral lower extremities with pain: Code(s): I83.813 - Varicose veins of bilateral lower extremities with pain Category: Medical Plan: Referred to vascular surgeon, patient was advised to wear compression knee-highs (3) Increased urinary frequency: Code(s): R35.0 - Frequency of micturition Category: Medical Plan: Obtain bladder ultrasound to rule out urinary retention (4) Type 2 diabetes mellitus: Code(s): E11.9 - Type 2 diabetes mellitus without complications Category: Medical Plan: Check A1c today decrease the dose of Mounjaro 2 5 mg weekly. Continue metformin Orders: Orders US bladder Today R35.0 - Frequency of micturition US venous duplex LE BI Today I82.409 - Acute embolism and thrombosis of unspecified deep veins of unspecified lower extremity H pylori Ag Stool Today A04.8 - Other specified bacterial intestinal infections Referrals Vascular Surgery Referral I83.813 - Varicose veins of bilateral lower extremities with pain Medications: New Mounjaro (tirzepatide) 5 mg (0.5 mL) subcut QWEEK 2 mL 1RF NS Discontinued dulaglutide (Trulicity) Discontinued Reason: Doctor's Order 4.5 mg (0.5 mL) subcut QWEEK 6 mL 3RF Mounjaro (tirzepatide) Discontinued Reason: Duplicate 12.5 mg (0.5 mL) subcut QWEEK 6 mL 0RF NS
--- OUTSIDE RECORDS SUMMARY | 2024-12-04 13:27 | XMS_ITS | Encounter Summary ---
Author Organization [facility] Address [address] [place] [address] Care Team Providers Care Lsw Name Role Phone Unknown Primary Care Provider [phone] Encounter Details Date Type Department Care Team (Late st Contact Info) Description 10/13/2024 Scanned Document [address] [place] [phone] Provider, Generic Social History Tobacco Use Types Packs/Day Years Used Date Smoking Tobacco: Never Assessed Sex and Gender Information Value Date Recorded Sex Assigned at Not on file Legal Sex Male 8:39 AM EST Gender Identity Not on file Sexual Orientation Not on file documented as of this encounter Plan of Treatment Not on file documented as of this encounter Visit Diagnoses Not on filedocumented in this encounter Care Teams Lsw Relationship Specialty Start Date End Date Unknown Unknow Provider Address PCP - General 10/13/24 documented as of this encounter
--- OUTSIDE RECORDS SUMMARY | 2024-12-04 13:27 | XMS_ITS | Clinical Summary ---
Author Organization [facility] Address [address] [place] [id number] Care Team Providers Care Vertical Boring Mill Operator Name Role Phone Unknown Primary Care Provider [phone] Allergies No known active allergies Medications cholecalciferol (CHOLECALCIFERO L) 250 MCG (32724 UT) capsule Take 1 capsule by mouth. 4 Active divalproex er (DEPAKOTE ER) 500 MG 24 hr tablet Take 500 mg by mouth 2 times a day. Active Trulicity 4.5 MG/0.5ML prefilled pen injection ADMINISTER 4.5 MG UNDER THE SKIN EVERY WEEK 4 Active famotidine (PEPCID) 20 MG tablet Take 20 mg by mouth nightly. 4 Active levETIRAcetam (KEPPRA) 1000 MG tablet Take 1,000 mg by mouth 3 (three) times a day. Active metFORMIN (GLUCOPHAGE-XR) 750 MG 24 hr tablet 1 tablet by Mouth/Oral Cavity route every 12 hours. 4 Active metoPROLOL TARTRATE (LOPRESSOR) 25 MG tablet Take 12.5 mg by mouth. 4 Active OXcarbazepine (TRILEPTAL) 150 MG tablet TAKE 2 TABLETS BY MOUTH IN THE MORNING AND 3 TABLETS EVERY EVENING Active rosuvastatin (CRESTOR) 20 MG tablet Take 20 mg by mouth. 4 Active Encounters Date Type Department Care Team Description 10/13/2024 12:00 PM EST Office Visit [facility] [address] [address] Otto Tian MD George, Stella, PA-C Dysuria (Primary Dx) 10/13/2024 Scanned Document [facility] 80 [facility] [address] [place] [address] Provider, Generic 10/13/2024 Travel 10/13/2024 Scanned Document [facility] 80 [facility] [address] [place] [address] Provider, Generic from Last 3 Months [...] (10/13/2024 12:23 PM EST) Culture SEE NOTE [employer] Comment: ??CULTURE, URINE, ROUTINE ?Micro Number: ?[id number] ??Test Status: ? Final ??Specimen Source: ?? Urine ??Specimen Quality: ??Adequate ??Result: ?No Growth Microbiology 10/13/2024 12:2 3 PM EST 10/14/2024 12:21 AM EST Carmelita Sanford PA-C LAB AMB MICRO ORDERABLES Nathalia l Result [employer] [address] [place] [phone] * (ABNORMAL) POCT Urinalysis Dipstick, Automated (10/13/2024 [...] Leukocyte Esterase, UA Trace(A) Negative Lot Number [id number] Golf Range Attendant [place] Urine 10/13/2024 12:1 7 PM EST Carmelita Sanford PA-C POINT OF CARE TEST ORDERABLES Final Result from Last [place] [id number] Care Teams Vertical Boring Mill Operator Relationship Specialty Start Date End Date Unknown Unknow Provider Address PCP - General 10/13/24
--- OUTSIDE RECORDS SUMMARY | 2024-12-04 13:27 | XMS_ITS | Encounter Summary ---
Author Organization [facility] Address [address] [place] [address] Care Team Providers Care Battery Wrecker Operator Name Role Phone Unknown Primary Care Provider [phone] Encounter Details Date Type Department Care Team (Late st Contact Info) Description 10/13/2024 Scanned Document [address] [place] [phone] Provider, Generic Social History Tobacco Use [...] on filedocumented in this encounter Care Teams Battery Wrecker Operator Relationship Specialty Start Date End Date Unknown Unknow Provider Address PCP - General 10/13/24 documented as of this encounter
== END 2024-12-04 12:42 | disposition home or self-care (01) ==
LOC: HO.HMCC 11:11
PROVIDERS: PCP Internal Medicine; Visit Provider Internal Medicine
DX: I82.409 Acute embolism and thrombosis of unspecified deep veins of unspecified lower extremity (principal); I83.813 Varicose veins of bilateral lower extremities with pain; R35.0 Frequency of micturition; E11.9 Type 2 diabetes mellitus without complications; Z23 Encounter for immunization

== ENCOUNTER → 2024-12-04 11:10 | Outpatient (BNVA) | payer MEDICARE, MEDICAID, SELFPAY | PROVIDERS: PCP Internal Medicine; Visit Provider Internal Medicine | DX: I82.409 Acute embolism and thrombosis of unspecified deep veins of unspecified lower extremity (principal); Z23 Encounter for immunization; I83.813 Varicose veins of bilateral lower extremities with pain; R35.0 Frequency of micturition; E11.9 Type 2 diabetes mellitus without complications; E78.5 Hyperlipidemia, unspecified; Z79.84 Long term (current) use of oral hypoglycemic drugs | CPT/HCPCS: 36415; 76857; 80053; 80061; 83036; 90471; 90677; 93970; 99212 ==

== ENCOUNTER 2024-12-04 14:21 | Outpatient (REF) | payer MEDICARE, MEDICAID, SELFPAY ==
--- NOTE | ~2024-12-04 | US_ITS ---
EXAMINATION: US TRIPLEX LOWER EXTREMITY, BILATERAL CLINICAL INFORMATION: Pain and edema, lower extremities. COMPARISON: None available. TECHNIQUE: Color-flow triplex imaging with spectral analysis and compression Doppler were performed on the bilateral lower extremities. FINDINGS: Respiratory variation, normal compression and augmented flow are noted throughout the interrogated common femoral vein, superficial femoral vein, profunda femoral vein, popliteal vein and midcalf peroneal and posterior tibial venous segments, bilaterally. There is no Wilkerson's cyst. US/US venous duplex LE BI IMPRESSION: No acute deep venous thrombosis involving the bilateral lower extremities. Negative for DVT. Electronically signed by: Ag Paredes MD 12/04/2024 03:59 PM EDT
--- NOTE | ~2024-12-04 | US_ITS ---
EXAMINATION: US PELVIS LIMITED (BLADDER) CLINICAL INFORMATION: Frequency of micturition. COMPARISON: None available. TECHNIQUE: Real-time imaging of the bladder. FINDINGS: BLADDER: Mildly distended. This limits sensitivity of the exam. Bilateral ureteral jets are not demonstrated. Prevoid bladder volume is 40.5 mL. Postvoid bladder volume is 0 mL. Estimated prostate volume is 55 mL. US/US bladder IMPRESSION: 1. Limited examination due to poor distention of the urinary bladder. Ureteral jets were not identified, nonspecific. Complete emptying of the urinary bladder on voiding. 2. Estimated prostate volume is 55 mL. Electronically signed by: Kahlil Reed MD 12/04/2024 04:16 PM EDT
[2024-12-04 16:29] LABS: Estimated Average Glucose 117 mg/dL; Hemoglobin A1c % 5.7 % (<6.0); Total Hemoglobin (HGBA1C) 3480.8861 umol/L
[2024-12-04 16:34] LABS: Alanine Aminotransferase 19 U/L (0-40); Albumin Level 3.8 g/dL (3.5-5.0); Alkaline Phosphatase 65 U/L (39-117); Anion Gap 16 (12-20); Aspartate Amino Transferase 26 U/L (5-37); Bilirubin Total 0.4 mg/dL (0.0-1.0); Blood Urea Nitrogen 15 mg/dL (9-16); Calcium 9.9 mg/dL (8.4-10.2); Carbon Dioxide 25 mmol/L (22-29); Chloride 101 mmol/L (96-108); Cholesterol 109 mg/dL (<200); Estimated Glomerular Filt Rate > 60; Glucose Fasting 106 mg/dL (60-99); HDL Cholesterol 36 mg/dL (>40); LDL Cholesterol Calculated 52 mg/dL (<100); Potassium 4.4 mmol/L (3.3-5.1); Sodium 138 mmol/L (135-145); Total Protein 7.8 g/dL (6.5-8.0); Triglycerides 106 mg/dL (<150)
--- OUTSIDE RECORDS SUMMARY | 2024-12-04 17:07 | XMS_ITS | Encounter Summary ---
Author Organization [facility] Address [address] [place] [address] Care Team Providers Care Outbound Supervisor Name Role Phone Unknown Primary Care Provider [phone] Encounter Details Date Type Department Care Team (Late st Contact Info) Description 10/13/2024 Scanned Document [address] [place] [phone] Provider, Generic Social History Tobacco Use [...] on filedocumented in this encounter Care Teams Outbound Supervisor Relationship Specialty Start Date End Date Unknown Unknow Provider Address PCP - General 10/13/24 documented as of this encounter
--- OUTSIDE RECORDS SUMMARY | 2024-12-04 17:07 | XMS_ITS | Clinical Summary ---
Author Organization [facility] Address [address] [place] [id number] Care Team Providers Care Tip Scourer Name Role Phone Unknown Primary Care Provider [phone] Allergies No known active allergies Medications cholecalciferol (CHOLECALCIFERO L) 250 MCG (16351 UT) capsule Take 1 capsule by mouth. [...] Description 10/13/2024 12:00 PM EST Office Visit [facility] [address] [address] Otto Tian MD George, Stella, PA-C Dysuria (Primary Dx) 10/13/2024 Scanned Document [facility] 80 [facility] [address] [place] [phone] Provider, Generic 10/13/2024 Travel 10/13/2024 Scanned Document [facility] 80 [facility] [address] [place] [phone] Provider, Generic from Last 3 [...] (10/13/2024 12:23 PM EST) Culture SEE NOTE [employer] Comment: ??CULTURE, URINE, ROUTINE ?Micro Number: ?[id number] ??Test Status: ? Final ??Specimen Source: ?? Urine ??Specimen Quality: ??Adequate ??Result: ?No Growth Microbiology 10/13/2024 12:2 3 PM EST 10/14/2024 12:21 AM EST Carmelita Sanford PA-C LAB AMB MICRO ORDERABLES Nathalia l Result [employer] [address] [place] [phone] * (ABNORMAL) POCT Urinalysis Dipstick, Automated (10/13/2024 [...] Leukocyte Esterase, UA Trace(A) Negative Lot Number [id number] Senior C Software Engineer [place] Urine 10/13/2024 12:1 7 PM EST Carmelita Sanford PA-C POINT OF CARE TEST ORDERABLES Final Result from Last 3 Months Insurance Care Teams Tip Scourer Relationship Specialty Start Date End Date Unknown Unknow Provider Address PCP - General 10/13/24
--- OUTSIDE RECORDS SUMMARY | 2024-12-04 17:07 | XMS_ITS | Encounter Summary ---
Author Organization [facility] Address [address] [place] [address] Care Team Providers Care Cardiograph Operator Name Role Phone Unknown Primary Care Provider [phone] Encounter Details Date Type Department Care Team (Late st Contact Info) Description 10/13/2024 Scanned Document [address] [place] [phone] Provider, Generic Social History Tobacco Use [...] on filedocumented in this encounter Care Teams Cardiograph Operator Relationship Specialty Start Date End Date Unknown Unknow Provider Address PCP - General 10/13/24 documented as of this encounter
== END 2024-12-04 14:22 | disposition home or self-care (01) ==
LOC: HO.HMGCX 14:21
PROVIDERS: PCP Internal Medicine; Visit Provider Internal Medicine
DX: Z13.89 Encounter for screening for other disorder (principal)
CPT/HCPCS: 36415; 76857; 80053; 80061; 83036; 93970

== ENCOUNTER → 2024-12-04 14:43 | Outpatient (BNV) | payer MEDICARE, MEDICAID, SELFPAY | PROVIDERS: PCP Internal Medicine; Visit Provider Radiology Diagnostic Radiology | DX: M79.669 Pain in unspecified lower leg (principal); R60.0 Localized edema; R35.0 Frequency of micturition | CPT/HCPCS: 76857; 93970 ==

== ENCOUNTER 2024-12-24 13:04 | Outpatient (AMB) | payer MEDICARE, MEDICAID, SELFPAY ==
--- NOTE | 2024-12-24 13:12 | A.OFFVIS_ITS ---
Intake Visit Reasons: Varicose veins of b/l lower extremities with pain Intake Note: Patient presents for varicose veins with pain. Patient states his left leg is worse than his right. He is ambulating with assistance as well as a cane. Accompanied by: Spouse Allergies No Known Allergies Allergy (Verified 12/24/24 13:15) HPI HPI Varicose veins of b/l lower extremities with pain: Details: The patient is a 69-year-old male presenting with bilateral lower extremity swelling and pain. He reports severe discomfort and swelling in both legs, particularly from the ankles down, affecting his ability to stand. Symptoms began approximately two weeks ago and have since prevented him from standing for a week. His past medical history is significant for Diabetes Mellitus for 13 years. It was difficult to get a true history. It appears in 2011 he had cardiac arrest with anoxic brain injury. Subsequent to that he has had seizure activities. It appears that it is well controlled. It is unclear if he has a history of epilepsy as well. In general he is having difficulty ambulating and having a fair amount of pain. It appears that his is under a significant amount of stress from this. He now presents to us for vascular evaluation Patient denies any previous venous surgery or injections. Patient denies any history of DVT/ PE. Ultrasound from 12/04/2024 appears to be negative for DVT Patient denies any history of phlebitis. Trial of compression includes - none They now present for vascular evaluation regarding their varicose veins. [facility] Medical History Annual physical exam Colonoscopy refused Colon cancer screening Type 2 diabetes mellitus CAD (coronary artery disease) Seizure Hyperlipidemia Cardiac arrest HTN (hypertension) Family History Father Diabetes Stroke Mother Hypertension Social History Housing: House Patient Tobacco Use Status: Former Tobacco user e-Cigarette/Vaping Use: Never Used service: No Current occupational status: retired Cognitive needs: No Hearing needs: Yes Vision needs: No Review of Systems Const All systems reviewed & are unremarkable except as noted in HPI and below Reports no additional complaints ENT Reports Normal hearing present Card Denies chest pain, Denies chest pain at rest, Denies chest pain with activity and Denies pedal edema Resp Denies cough GI Denies abdominal pain Musc Denies abnormal gait, Denies muscle cramps and Denies radiating pain into limb Skin/Breast Denies skin ulcer and Denies wounds Neuro Reports Normal hearing present and Denies abnormal gait Psych Reports no additional complaints Physical Exam Const General: cooperative, healthy appearing and comfortable Orientation/consciousness: oriented to person, oriented to place and oriented to time HEENT Head: Yes normal to inspection Neck Neck: Yes normal visual inspection Carotids: no bruits Chest Chest palpation & inspection: normal inspection of the chest Resp Effort & Inspection: normal respiratory effort and able to speak in complete sentences Auscultation: clear to auscultation bilaterally, no crackles, no rales, no rhonchi and no wheezes Cardio Rate: regular rate Rhythm: regular rhythm Heart sounds: S1 normal heart sound present and S2 normal heart sound present Bruits: no carotid bruits Peripheral pulses: Peripheral pulses 2+ throughout GI Inspection: Yes normal to inspection Skin Wounds: no wounds Hair: normal Neuro General: oriented to person, oriented to place and oriented to time Cranial nerves: Yes CN's II-XII intact bilaterally and Yes Normal hearing present Cognition (Neuro): normal cognition Motor exam (neuro): 5/5 motor strength present throughout Extrem Other: venous exam: +1 edema General: No clubbing, No cyanosis and Yes edema Psych Appearance: grossly normal Mental Status: mental status grossly normal Speech and movement: Normal speech and movement present Assessment & Plan Assessment & Plan (1) Varicose veins of right lower extremity with inflammation: Code(s): I83.11 - Varicose veins of right lower extremity with inflammation Category: Medical Plan: In short patient has mild amount of swelling. He does have palpable bilateral lower extremity dorsalis pedis pulses. It is unclear what the source of the pain and discomfort is from. I do attribute most of this to neurologic secondary to his anoxic brain injury. It appears to be progressing. The appears to be frustrated with his overall condition. I will assess the venous status but I do not think that this will alleviate his issues. I do think he needs re-evaluation by his neurology team which is at [facility]. He will follow up with us after venous testing. Thank you for allowing us to assist in his care. If there are any questions or concerns please do not hesitate to contact us. Orders: Orders US venous duplex LE BI 1 Week I83.11 - Varicose veins of right lower extremity with inflammation Coding Level of Care Code New Pt Level 4 (53350) Complex EM visit Add On G2211 Diagnoses Varicose veins of right lower extremity with inflammation I83.11
--- OUTSIDE RECORDS SUMMARY | 2024-12-24 14:20 | XMS_ITS | Clinical Summary ---
Author Organization [facility] Address [address] [place] [id number] Care Team Providers Care Radiological Equipment Specialist Name Role Phone Unknown Primary Care Provider [phone] Allergies No known active allergies Medications cholecalciferol (CHOLECALCIFERO L) 250 MCG (68990 UT) capsule Take 1 capsule by mouth. [...] Description 10/13/2024 12:00 PM EST Office Visit [facility] [address] [address] Otto Tian MD George, Stella, PA-C Dysuria (Primary Dx) 10/13/2024 Scanned Document [facility] 80 [facility] [address] [place] [phone] Provider, Generic 10/13/2024 Travel 10/13/2024 Scanned Document [facility] 80 [facility] [address] [place] [phone] Provider, Generic from Last 3 Months [...] (10/13/2024 12:23 PM EST) Culture SEE NOTE [employer] Comment: ??CULTURE, URINE, ROUTINE ?Micro Number: ?[id number] ??Test Status: ? Final ??Specimen Source: ?? Urine ??Specimen Quality: ??Adequate ??Result: ?No Growth Microbiology 10/13/2024 12:2 3 PM EST 10/14/2024 12:21 AM EST Carmelita Sanford PA-C LAB AMB MICRO ORDERABLES Nathalia l Result [employer] [address] [place] [phone] * (ABNORMAL) POCT Urinalysis Dipstick, Automated (10/13/2024 [...] Leukocyte Esterase, UA Trace(A) Negative Lot Number [id number] Linter Tender [place] Urine 10/13/2024 12:1 7 PM EST Carmelita Sanford PA-C POINT OF CARE TEST ORDERABLES Final Result from Last 3 Months Insurance Care Teams Radiological Equipment Specialist Relationship Specialty Start Date End Date Unknown Unknow Provider Address PCP - General 10/13/24
--- OUTSIDE RECORDS SUMMARY | 2024-12-24 14:20 | XMS_ITS | Encounter Summary ---
Author Organization [facility] Address [address] [place] [address] Care Team Providers Care Signal Repairer Name Role Phone Unknown Primary Care Provider [phone] Encounter Details Date Type Department Care Team (Late st Contact Info) Description 10/13/2024 Scanned Document [address] [place] [phone] Provider, Generic Social History Tobacco Use [...] on filedocumented in this encounter Care Teams Signal Repairer Relationship Specialty Start Date End Date Unknown Unknow Provider Address PCP - General 10/13/24 documented as of this encounter
--- OUTSIDE RECORDS SUMMARY | 2024-12-24 14:20 | XMS_ITS | Encounter Summary ---
Author Organization [facility] Address [address] [place] [address] Care Team Providers Care Paralegal Legal Secretary Name Role Phone Unknown Primary Care Provider [phone] Encounter Details Date Type Department Care Team (Late st Contact Info) Description 10/13/2024 Scanned Document [address] [place] [phone] Provider, Generic Social History Tobacco Use [...] on filedocumented in this encounter Care Teams Paralegal Legal Secretary Relationship Specialty Start Date End Date Unknown Unknow Provider Address PCP - General 10/13/24 documented as of this encounter
== END 2024-12-24 13:33 | disposition home or self-care (01) ==
LOC: HO.HVS 13:05
PROVIDERS: PCP Internal Medicine; Visit Provider Surgery Vascular Surgery
DX: I83.11 Varicose veins of right lower extremity with inflammation (principal)
CPT/HCPCS: 99204; G2211

== ENCOUNTER → 2024-12-24 13:04 | Outpatient (BNVA) | payer MEDICARE, MEDICAID, SELFPAY | PROVIDERS: PCP Internal Medicine; Visit Provider Surgery Vascular Surgery | DX: I83.11 Varicose veins of right lower extremity with inflammation (principal) | CPT/HCPCS: 99202 ==

== ENCOUNTER 2025-01-08 12:45 | Outpatient (REF) | payer MEDICARE, MEDICAID, SELFPAY ==
--- NOTE | ~2025-01-08 | US_ITS ---
EXAMINATION: US LOWER EXTREMITY VENOUS (REFLUX EXAM), BILATERAL CLINICAL INFORMATION: Varices. COMPARISON: Ultrasound venous duplex lower extremity dated December 04, 2024. TECHNIQUE: Color flow triplex imaging and compression Doppler was performed to evaluate both the deep and the superficial systems bilaterally. To evaluate the superficial system, the examination was performed in the upright position. Color-flow Doppler ultrasound and compression ultrasound were utilized. In addition, maneuvers were utilized to demonstrate reflux. FINDINGS: 1. DEEP VENOUS ULTRASOUND OF THE RIGHT LOWER EXTREMITY: Common Femoral Vein: Compressible, normal respiratory variation and augmented flow. Femoral Vein: Compressible, normal color flow and augmentation. Popliteal Vein: Compressible, normal augmentation. Deep Reflux: There is no evidence of reflux in the deep system in either the common femoral vein, superficial femoral or the popliteal vein. There is a 3.7 x 3.4 cm lobulated anechoic lesion without flow on color Doppler interrogation centered in the popliteal fossa. 2. SUPERFICIAL ULTRASOUND WITH DOPPLER OF RIGHT LOWER EXTREMITY: GREAT SAPHENOUS VEIN: Saphenofemoral Junction: 0.5 cm; Reflux: 1068 ms Proximal Thigh: 0.3 cm; Reflux: 2852 ms Mid Thigh: 0.3 cm; Reflux: 2848 ms Distal Thigh: 0.2 cm; Reflux: 2560 ms At Knee: 0.2 cm; Reflux: 0 ms Proximal Calf: 0.2 cm; Reflux: 0 ms Mid Calf: 0.2 cm; Reflux: 0 ms Distal Calf: 0.2 cm; Reflux: 0 ms DUPLICATED MEDIAL GREAT SAPHENOUS VEIN: Diameter: None imaged Reflux: NA DUPLICATED LATERAL GREAT SAPHENOUS VEIN: Diameter: 0.2 cm. Reflux: NA SMALL SAPHENOUS VEIN: Saphenopopliteal Junction: 0.1 cm; Reflux: 0 ms Proximal: 0.2 cm; Reflux: 1368 ms Distal: 0.3 cm; Reflux: 888 ms VEIN OF GIACOMINI: Size: 0.2 cm. Reflux: 2776 ms. PERFORATORS: Location: None imaged Size: NA Reflux: NA VARICOSITIES: Location: None imaged. Size: NA Reflux: NA 3. DEEP VENOUS ULTRASOUND OF THE LEFT LOWER EXTREMITY: Common Femoral Vein: Compressible, normal respiratory variation and augmented flow. Femoral Vein: Compressible, normal color flow and augmentation. Popliteal Vein: Compressible, normal augmentation. Deep Reflux: There is no evidence of reflux in the deep system in either the common femoral vein, superficial femoral or the popliteal vein. There is no evidence of a Wilkerson's cyst. 4. SUPERFICIAL ULTRASOUND WITH DOPPLER OF LEFT LOWER EXTREMITY: GREAT SAPHENOUS VEIN: Saphenofemoral Junction: 0.4 cm; Reflux: 0 ms Proximal Thigh: 0.2 cm; Reflux: 0 ms Mid Thigh: 0.1 cm; Reflux: 0 ms Distal Thigh: 0.1 cm; Reflux: 0 ms At Knee: 0.2 cm; Reflux: 0 ms Proximal Calf: 0.1 cm; Reflux: 0 ms Mid Calf: 0.2 cm; Reflux: 0 ms Distal Calf: 0.2 cm; Reflux: 1720 ms DUPLICATED MEDIAL GREAT SAPHENOUS VEIN: Diameter: None imaged Reflux: NA DUPLICATED LATERAL GREAT SAPHENOUS VEIN: Diameter: None imaged. Reflux: NA SMALL SAPHENOUS VEIN: Saphenopopliteal Junction: 0.1 cm; Reflux: 0 ms Proximal: 0.1 cm; Reflux: 0 ms Distal: 0.2 cm; Reflux: 0 ms VEIN OF GIACOMINI: Size: NA Reflux: NA PERFORATORS: Location: None imaged Size: NA Reflux: NA VARICOSITIES: Location: None Imaged Size: NA Reflux: NA US/US venous duplex LE BI IMPRESSION: Right: Venous insufficiency, great saphenous vein from the proximal thigh to above the knee. Venous insufficiency, small saphenous vein from the mid calf to the distal calf. Venous insufficiency, vein of Giacomini. 3.7 cm lobulated popliteal cyst.. Left: Venous insufficiency, great saphenous vein at the ankle. Electronically signed by: Ag Paredes MD 01/08/2025 02:08 PM EDT
--- OUTSIDE RECORDS SUMMARY | 2025-01-08 13:24 | XMS_ITS | Encounter Summary ---
Author Organization Formerly [facility] Address [address] [place] [address] Care Team Providers Care Auto Inspection Specialist Name Role Phone Unknown Primary Care Provider [phone] Encounter Details Date Type Department Care Team (Late st Contact Info) Description 10/13/2024 Scanned Document [address] [place] [phone] Provider, Generic Social History Tobacco Use [...] on filedocumented in this encounter Care Teams Auto Inspection Specialist Relationship Specialty Start Date End Date Unknown Unknow Provider Address PCP - General 10/13/24 documented as of this encounter
--- OUTSIDE RECORDS SUMMARY | 2025-01-08 13:24 | XMS_ITS | Clinical Summary ---
Author Organization [facility] Address [address] [place] [id number] Care Team Providers Care Twisthand Name Role Phone Unknown Primary Care Provider [phone] Allergies No known active allergies Medications cholecalciferol (CHOLECALCIFERO L) 250 MCG (84770 UT) capsule Take 1 capsule by mouth. [...] Description 10/13/2024 12:00 PM EST Office Visit [facility] [address] [phone] Otto Tian MD George, Stella, PA-C Dysuria (Primary Dx) 10/13/2024 Scanned Document [facility] [address] [facility] [address] [place] [phone] Provider, Generic 10/13/2024 Travel 10/13/2024 Scanned Document [facility] [address] [facility] [address] [place] [phone] Provider, Generic from Last 3 Months [...] Zoster (Shingles) Vaccine (1 of 2) 2003 COVID-19 Vaccine ( - 2023-2 5 season) 2024 Influenza Vaccine 03/21/2025 RSV Vaccine 60 years and old er [...] (10/13/2024 12:23 PM EST) Culture SEE NOTE [employer] Comment: ??CULTURE, URINE, ROUTINE ?Micro Number: ?[id number] ??Test Status: ? Final ??Specimen Source: ?? Urine ??Specimen Quality: ??Adequate ??Result: ?No Growth Microbiology 10/13/2024 12:2 3 PM EST 10/14/2024 12:21 AM EST Carmelita Sanford PA-C LAB AMB MICRO ORDERABLES Nathalia l Result [employer] [address] [place] [phone] * (ABNORMAL) POCT Urinalysis Dipstick, Automated (10/13/2024 [...] Leukocyte Esterase, UA Trace(A) Negative Lot Number [id number] [employer] Pass Pass Urine 10/13/2024 12:1 7 PM EST Carmelita Sanford PA-C POINT OF CARE TEST ORDERABLES Final Result from Last 3 Months Insurance Care Teams Twisthand Relationship Specialty Start Date End Date Unknown Unknow Provider Address PCP - General 10/13/24
--- OUTSIDE RECORDS SUMMARY | 2025-01-08 13:24 | XMS_ITS | Encounter Summary ---
Author Organization [facility] Address [address] [place] [address] Care Team Providers Care Business Analyst Sales Operations Name Role Phone Unknown Primary Care Provider [phone] Encounter Details Date Type Department Care Team (Late st Contact Info) Description 10/13/2024 Scanned Document [address] [place] [phone] Provider, Generic Social History Tobacco Use [...] on filedocumented in this encounter Care Teams Business Analyst Sales Operations Relationship Specialty Start Date End Date Unknown Unknow Provider Address PCP - General 10/13/24 documented as of this encounter
== END 2025-01-08 12:46 | disposition home or self-care (01) ==
LOC: HO.US 12:45
PROVIDERS: PCP Internal Medicine; Visit Provider Surgery Vascular Surgery
DX: I83.11 Varicose veins of right lower extremity with inflammation (principal)
CPT/HCPCS: 93970

== ENCOUNTER → 2025-01-08 12:47 | Outpatient (BNV) | payer MEDICARE, MEDICAID, SELFPAY | PROVIDERS: PCP Internal Medicine; Visit Provider Radiology Diagnostic Radiology | DX: I87.2 Venous insufficiency (chronic) (peripheral) (principal) | CPT/HCPCS: 93970 ==

== ENCOUNTER 2025-01-30 14:37 | Outpatient (AMB) | payer MEDICARE, MEDICAID, SELFPAY ==
--- NOTE | 2025-01-30 14:44 | MHC.OFFVIS ---
Intake Visit Reasons: Follow up US 01/08/25 Intake Note: Patient presents for follow up US performed on 01/08/25. No complaints. Roll Slicing Machine Tender Required: Yes Roll Slicing Machine Tender Name: Tania [id number] Accompanied by: Family/Other Allergies No Known Allergies Allergy (Verified 01/30/25 15:09) [facility] Follow up 01/08/25: Details: Very pleasant 69-year-old gentleman presents for follow-up regarding venous insufficiency. He had difficulty ambulating last visit appears to be doing somewhat better since his last visit. They have tried using compression but he has been unable to tolerate it. He now presents for follow-up with venous insufficiency testing. [facility] Medical History Annual physical exam Colonoscopy refused Colon cancer screening Type 2 diabetes mellitus CAD (coronary artery disease) Seizure Hyperlipidemia Cardiac arrest HTN (hypertension) Family History Father Diabetes Stroke Mother Hypertension Social History Housing: House Patient Tobacco Use Status: Former Tobacco user e-Cigarette/Vaping Use: Never Used service: No Current occupational status: retired Cognitive needs: No Hearing needs: Yes Vision needs: No Review of Systems Const Reports as per HPI ENT Reports no additional complaints Card Denies chest pain, Denies chest pain at rest and Denies chest pain with activity Resp Denies chest congestion and Denies cough GI Reports no additional complaints Musc Details: pain over varicosities, aching of lower extremities, swelling, cramping, heaviness and tiredness, itching Denies abnormal gait Skin/Breast Reports pruritus and Denies wounds Neuro Reports no additional complaints and Denies abnormal gait Psych Denies no additional complaints Physical Exam Const General: cooperative, healthy appearing and comfortable Orientation/consciousness: oriented to person, oriented to place and oriented to time Neck Carotids: no bruits Chest Chest palpation & inspection: normal inspection of the chest and normal palpation of entire chest wall Resp Effort & Inspection: normal respiratory effort and able to speak in complete sentences Cardio Rate: regular rate Heart sounds: S1 normal heart sound present and S2 normal heart sound present Peripheral pulses: Peripheral pulses 2+ throughout GI Inspection: Yes normal to inspection Skin Other: +2 edema, large rope-like varicosities greater than 4 mm CEAP Classification C4 - skin color changes Ep - Etiology Primary As - superficial veins P - reflux General skin exam: dry skin Neuro General: oriented to person, oriented to place and oriented to time Extrem Right lower extremity: full ROM, normal capillary refill and edema Left lower extremity: full ROM, normal capillary refill and edema Psych Mental Status: mental status grossly normal Results Reviewed Results Reviewed: Brief summary of venous insufficiency testing is as follows: right great saphenous vein: Positive right small saphenous vein: Positive right accessory vein: none present left great saphenous vein: Positive left small saphenous vein: negative left accessory vein: none present Please note there is no evidence of any venous aneurysms or significant tortuosity Assessment & Plan Assessment & Plan (1) Varicose veins of right lower extremity with inflammation: Code(s): I83.11 - Varicose veins of right lower extremity with inflammation Category: Medical Plan: This patient has varicose veins with inflammation. They continue to be a source of discomfort for the patient. The patient has tried conservative treatment with compression, leg elevation and exercise program for over 3 months time. They have been compliant with all treatment. This has provided minimal relief for the patient. I do not anticipate this course of treatment will alter the underlying etiology. The patient has been scheduled for lower extremity venous treatment inclusive of --- right great saphenous vein Cyanoacralate ablation. Risks, benefits, and complications of this procedure has been discussed in detail with the patient including but not limited to bleeding, infection, and the development of a DVT. The patient has demonstrated a clear understanding and has consented. We will schedule the patient as soon as possible. Thank you for allowing us to participate in this patient's care. If there are any questions or concerns please do not hesitate to contact us. Coding Level of Care Code Est Pt Level 4 (99293) Complex EM visit Add On G2211 Diagnoses Varicose veins of right lower extremity with inflammation I83.11
== END 2025-01-30 15:08 | disposition home or self-care (01) ==
LOC: HO.HVS 14:38
PROVIDERS: PCP Internal Medicine; Visit Provider Surgery Vascular Surgery
DX: I83.11 Varicose veins of right lower extremity with inflammation (principal)
CPT/HCPCS: 99214; G2211

== ENCOUNTER → 2025-01-30 14:37 | Outpatient (BNVA) | payer MEDICARE, MEDICAID, SELFPAY | PROVIDERS: PCP Internal Medicine; Visit Provider Surgery Vascular Surgery | DX: I83.11 Varicose veins of right lower extremity with inflammation (principal) | CPT/HCPCS: 99212 ==

== ENCOUNTER 2025-02-14 12:19 | Outpatient (AMB) | payer MEDICARE, MEDICAID, SELFPAY ==
--- NOTE | 2025-02-14 12:35 | MHC.OFFVIS ---
Intake Visit Reasons: Right Venaseal Accompanied by: Self / Same As Patient Allergies No Known Allergies Allergy (Verified 02/14/25 12:36) [facility] Medical History Annual physical exam Colonoscopy refused Colon cancer screening Type 2 diabetes mellitus CAD (coronary artery disease) Seizure Hyperlipidemia Cardiac arrest HTN (hypertension) Family History Father Diabetes Stroke Mother Hypertension Social History Housing: House Patient Tobacco Use Status: Former Tobacco user e-Cigarette/Vaping Use: Never Used service: No Current occupational status: retired Cognitive needs: No Hearing needs: Yes Vision needs: No Office Procedures Vascular Office Procedure Details Details: Diagnosis: Right Leg varicose veins with inflammation Procedure: Endovenous Ablation of the right Great Saphenous Vein with VenaSeal Closure System Anesthesia: Local infiltration 5 cc, Surgical Technician: None Estimated Blood Loss: min Specimen: none Duplex ultrasound was used to map out the insufficient saphenous vein, and access was determined and marked on the overlying skin. The depth and diameter of the vein(s) to be treated was documented. The patient was placed supine on the procedure table and the leg was prepped and draped using sterile technique. Ultasound guidance was again used to localize the access site. 1% lidocaine was injected as a local anesthetic in the subcutaneous tissues at the target location in the GSV in the lower leg. Using ultrasound guidance, access was gained at this location with the 19 gauge thin walled access needle and followed by introduction of a short guidewire, location confirmed with ultrasound. A small, 3 mm incision was made at the access site to allow for introduction and placement of the 7 Fr x7cm introducer/dilator. The dilator and guidewire were removed. The 0.035 guidewire from the VenaSeal kit was then introduced and positioned at the saphenofemoral junction using ultrasound guidance. The 80 cm 7 Fr introducer sheath/dilator was positioned 5cm from the saphenofemoral junction. The guidewire and dilator were removed, and the remaining sheath was flushed with sterile saline, with the syringe remaining in place prior to the next steps. The cyanoacrylate adhesive was precisely primed into the 5 F delivery catheter and this catheter/syringe combination was attached within the dispenser gun. This assembly was introduced through the 7F sheath and positioned 5 cm caudal of the saphenofemoral junction under ultrasound guidance. The steps from the IFU were followed for dispensing amounts, locations and compression times, 2 aliquots proximally with 3 minutes of compression, and 1 aliquot every 3 cm distally with 30 sec of compression along the course of the vessel. Following the last injection and compression sequence, the catheter and introducer sheath were pulled out from the access site. Hemostasis was achieved with manual compression and an adhesive bandage was applied to the incision. Ultrasound confirmed complete coaptation and closure of the treated segments of the GSV, and the absence of any DVT at the saphenofemoral junction. Treatment time was approximately 5 minutes and the vein length treated was 30 cm. The drapes were removed and the patient cleaned and prepared for discharge. Post op ultrasound check is scheduled for 48-72 hours and the patient was given written post-op instructions. 26087 - Endoven Ther Chem Adhes 1st All charges added?: Procedure code (CPT) selection complete Assessment & Plan Assessment & Plan (1) Varicose veins of right lower extremity with inflammation: Comment: 02/14/2025 - right great saphenous vein Cyanoacralate ablation Code(s): I83.11 - Varicose veins of right lower extremity with inflammation Category: Medical Plan: See op note Coding Level of Care Code Procedure Only Diagnoses Varicose veins of right lower extremity with inflammation I83.11 CPT Codes Details - Vascular 3: 00328 - Endoven Ther Chem Adhes 1st ([id number])
== END 2025-02-14 13:16 | disposition home or self-care (01) ==
LOC: HO.HVS 12:19
PROVIDERS: PCP Internal Medicine; Visit Provider Surgery Vascular Surgery
DX: I83.11 Varicose veins of right lower extremity with inflammation (principal)
CPT/HCPCS: 36482

== ENCOUNTER → 2025-02-14 12:19 | Outpatient (BNVA) | payer MEDICARE, MEDICAID, SELFPAY | PROVIDERS: PCP Internal Medicine; Visit Provider Surgery Vascular Surgery | DX: I83.11 Varicose veins of right lower extremity with inflammation (principal) | CPT/HCPCS: 36482; J2003 ==

== ENCOUNTER 2025-04-08 09:40 | Outpatient (AMB) | payer MEDICARE, MEDICAID, SELFPAY ==
[2025-04-08 09:49] VITALS: BMI 28.5
--- NOTE | 2025-04-08 09:49 | A.OFFVIS_ITS ---
Vital Signs 04/08/25 09:49 Height 5 ft 7 in Weight 182 lb BMI 28.5 Intake Visit Reasons: follow up R venaseal 02/14/25 Intake Note: follow up Right Venaseal 02/14/25, pt states swelling has decreased, complains only of knee pain Application Software Developer Required: Yes Application Software Developer Language: Isabel Application Software Developer Services: Application Software Developer Present Accompanied by: Spouse Allergies No Known Allergies Allergy (Verified 04/08/25 09:53) HPI HPI follow up R venaseal 02/14/25: Details: The patient is a 69-year-old male presenting for follow-up after right great saphenous vein v Cyanoacralate ablation. He has done well postprocedure. Post-procedure, the patient reports improvement in swelling, allowing him to stand more comfortably. However, he experiences pain above the ankle and at the spot where he bends his foot, which appears to be more musculoskeletal in nature and now presents for postprocedure follow-up. [facility] Medical History Annual physical exam Colonoscopy refused Colon cancer screening Type 2 diabetes mellitus CAD (coronary artery disease) Seizure Hyperlipidemia Cardiac arrest HTN (hypertension) Family History Father Diabetes Stroke Mother Hypertension Social History Housing: House Patient Tobacco Use Status: Former Tobacco user e-Cigarette/Vaping Use: Never Used service: No Current occupational status: retired Cognitive needs: No Hearing needs: Yes Vision needs: No Review of Systems Const All systems reviewed & are unremarkable except as noted in HPI and below Reports no additional complaints ENT Reports Normal hearing present Card Denies chest pain, Denies chest pain at rest, Denies chest pain with activity and Denies pedal edema Resp Denies cough GI Denies abdominal pain Musc Denies abnormal gait, Denies muscle cramps and Denies radiating pain into limb Skin/Breast Denies skin ulcer and Denies wounds Neuro Reports Normal hearing present and Denies abnormal gait Psych Reports no additional complaints Physical Exam Vital Signs: BMI result Body Mass Index 28.5 Const General: cooperative, healthy appearing and comfortable Orientation/consciousness: oriented to person, oriented to place and oriented to time HEENT Head: Yes normal to inspection Neck Neck: Yes normal visual inspection Carotids: no bruits Chest Chest palpation & inspection: normal inspection of the chest Resp Effort & Inspection: normal respiratory effort and able to speak in complete sentences Auscultation: clear to auscultation bilaterally, no crackles, no rales, no rhonchi and no wheezes Cardio Rate: regular rate Rhythm: regular rhythm Heart sounds: S1 normal heart sound present and S2 normal heart sound present Bruits: no carotid bruits Peripheral pulses: Peripheral pulses 2+ throughout GI Inspection: Yes normal to inspection Skin Wounds: no wounds Hair: normal Neuro General: oriented to person, oriented to place and oriented to time Cranial nerves: Yes CN's II-XII intact bilaterally and Yes Normal hearing present Cognition (Neuro): normal cognition Motor exam (neuro): 5/5 motor strength present throughout Extrem Other: venous exam: No significant superficial varicosities or spider telangiectasias, minimal edema General: No clubbing, No cyanosis and No edema Psych Appearance: grossly normal Mental Status: mental status grossly normal Speech and movement: Normal speech and movement present Assessment & Plan Assessment & Plan (1) Varicose veins of right lower extremity with inflammation: Comment: 02/14/2025 - right great saphenous vein Cyanoacralate ablation Code(s): I83.11 - Varicose veins of right lower extremity with inflammation Category: Medical Plan: The patient has done extremely well with all venous treatments. Patient's may often experience postprocedure phlebitic episodes and I have discussed with the patient use of warm compresses and NSAIDS if tolerated for pain discomfort. In addition, I have discussed continued conservative measures including use of compression, leg elevation, and exercise. The patient was also given an information sheet regarding appropriate use of compression stockings and future purchases. Thank you for allowing us to care for your patient with venous disease. (2) Right ankle pain: Code(s): M25.571 - Pain in right ankle and joints of right foot Category: Medical Qualifiers: Chronicity: chronic Qualified Code(s): M25.571 - Pain in right ankle and joints of right foot; G89.29 - Other chronic pain Plan: Patient has chronic right ankle pain. This appears to be more musculoskeletal in nature and wound more tender on palpation and compression. This may be an element of arthritis. He may benefit from a podiatric evaluation. This was relayed to the patient he can follow-up with his primary care team. Once again he will follow up with us on an as-needed basis. Thank you for allowing us to assist in his care. Coding Level of Care Code Est Pt Level 3 (50072) Diagnoses Varicose veins of right lower extremity with inflammation I83.11 Chronic pain of right ankle M25.571; G89.29 Chronicity: chronic
--- OUTSIDE RECORDS SUMMARY | 2025-04-08 10:46 | XMS_ITS | Encounter Summary ---
Author Organization [facility] Address [address] [place] [address] Care Team Providers Care Orthotic Aide Name Role Phone Unknown Primary Care Provider [phone] Encounter Details Date Type Department Care Team (Late st Contact Info) Description 10/13/2024 Scanned Document [address] [place] [phone] Provider, Generic Social History Tobacco Use [...] on filedocumented in this encounter Care Teams Orthotic Aide Relationship Specialty Start Date End Date Unknown Unknow Provider Address PCP - General 10/13/24 documented as of this encounter
--- OUTSIDE RECORDS SUMMARY | 2025-04-08 10:46 | XMS_ITS ---
Author Name [facility] Organization Unknown History of Medication Use Medication Directions Dispensed Refills Start Date End Date Stat us sulfamethoxazole-trimet hoprim (BACTRIM DS,SEPTRA DS) 800-160 MG per tablet Take 1 tablet by mouth 2 (two) times a day. 10/13/2024 active Trulicity 4.5 MG/0.5ML prefilled pen injection ADMINISTER 4.5 MG UNDER THE SKIN EVERY WEEK 07/31/2024 active metFORMIN (GLUCOPHAGE-XR) 750 MG 24 hr tablet 1 tablet by Mouth/Oral Cavity route every 12 hours. 07/26/2024 active metoPROLOL TARTRATE (LOPRESSOR) 25 MG tablet Take 12.5 mg by mouth. 07/26/2024 active famotidine (PEPCID) 20 MG tablet Take 20 mg by mouth nightly. 07/24/2024 active rosuvastatin (CRESTOR) 20 MG tablet Take 20 mg by mouth. 07/24/2024 active cholecalciferol (CHOLECALCIFEROL) 250 MCG (83781 UT) capsule Take 1 capsule by mouth. 02/02/2024 active divalproex er (DEPAKOTE ER) 500 MG 24 hr tablet Take 500 mg by mouth 2 times a day. active levETIRAcetam (KEPPRA) 1000 MG tablet Take 1,000 mg by mouth 3 (three) times a day. active OXcarbazepine (TRILEPTAL) 150 MG tablet TAKE 2 TABLETS BY MOUTH IN THE MORNING AND 3 TABLETS EVERY EVENING active Problems Problem Status Onset Date Problem Type Date of Resoluti on Source Dysuria active EncounterDiagnosisAct CCT Encounters Encounter Type Encounter Reason Primary Diagnosis Location Date Ambulatory Urinary Tract Infection Urinary Tract Infection [facility] 10/13/2024 Care Team Organization Name Specialty Phone Email Start Date End Da te [facility] 10/30/2024 11/19/2024 [facility] 10/13/2024
== END 2025-04-08 10:11 | disposition home or self-care (01) ==
LOC: HO.HVS 09:41
PROVIDERS: PCP Internal Medicine; Visit Provider Surgery Vascular Surgery
DX: I83.11 Varicose veins of right lower extremity with inflammation (principal); M25.571 Pain in right ankle and joints of right foot; G89.29 Other chronic pain
CPT/HCPCS: 99213

== ENCOUNTER → 2025-04-08 09:40 | Outpatient (BNVA) | payer MEDICARE, MEDICAID, SELFPAY | PROVIDERS: PCP Internal Medicine; Visit Provider Surgery Vascular Surgery | DX: I83.11 Varicose veins of right lower extremity with inflammation (principal); M25.571 Pain in right ankle and joints of right foot; G89.29 Other chronic pain | CPT/HCPCS: 99212 ==

== ENCOUNTER 2025-06-23 07:46 | Outpatient (REF) | payer MEDICARE, MEDICAID, SELFPAY ==
--- OUTSIDE RECORDS SUMMARY | 2025-06-23 07:50 | XMS_ITS | Encounter Summary ---
Author Organization [facility] Address [address] [place] [address] Care Team Providers Care Staff Climate Scientist Name Role Phone Unknown Primary Care Provider [phone] Encounter Details Date Type Department Care Team (Late st Contact Info) Description 10/13/2024 Scanned Document [address] [place] [phone] Provider, Generic Social History Tobacco Use [...] on filedocumented in this encounter Care Teams Staff Climate Scientist Relationship Specialty Start Date End Date Unknown Unknow Provider Address PCP - General 10/13/24 documented as of this encounter
--- OUTSIDE RECORDS SUMMARY | 2025-06-23 07:50 | XMS_ITS | Clinical Summary ---
Author Organization [facility] Address [address] [place] [address] Care Team Providers Care [employer] Name Role Phone Unknown Primary Care Provider [phone] Allergies No known active allergies Medications cholecalciferol (CHOLECALCIFERO L) 250 MCG (80908 UT) capsule Take 1 capsule by mouth. [...] Take 20 mg by mouth. 4 Active Social History Tobacco Use Types Packs/Day Years [...] 86 10/13/2024 11:58 AM EST Temperature 36.9 C (98.4 F) 10/13/2024 11:58 AM EST Respiratory Rate 14 10/13/2024 11:58 AM EST Oxygen Saturation 98% 10/13/2024 11:58 AM EST Inhaled Oxygen Concentration - - Weight - - Height - - Body Mass Index - - Plan of Treatment Health Maintenance Due Date Last Done Comments Advance Care Planning 1955 Hepatitis C Virus Screening 1955 DTaP/Tdap/Td Vaccines (1 - Tdap) 1972 Colonoscopy 1998 Pneumococcal Vaccines 50+ (1 of 1 - PCV) 2003 Zoster (Shingles) Vaccine (1 of 2) 2003 Influenza Vaccine 03/21/2025 COVID-19 Vaccine ( - 2023-2 5 season) 2025 RSV Vaccine 50 years and old er and Patients (1 - 1-dose 75+ series) 2028 Hepatitis B Vaccines Aged Out No long er eligible based on patient's age to complete this topic Insurance [employer] MGD MEDICARE Care Teams [employer] Relationship Specialty Start Date End Date Unknown Unknow Provider Address PCP - General 10/13/24
--- OUTSIDE RECORDS SUMMARY | 2025-06-23 07:50 | XMS_ITS | Encounter Summary ---
Author Organization [facility] Address [address] [place] [address] Care Team Providers Care Outside Salesman Name Role Phone Unknown Primary Care Provider [phone] Encounter Details Date Type Department Care Team (Late st Contact Info) Description 10/13/2024 Scanned Document [address] [place] [id number] Provider, Generic Social History Tobacco Use [...] on filedocumented in this encounter Care Teams Outside Salesman Relationship Specialty Start Date End Date Unknown Unknow Provider Address PCP - General 10/13/24 documented as of this encounter
[2025-06-23 10:26] LABS: MANUAL DIFF FLAG NO
[2025-06-23 10:46] LABS: Hematocrit 42.5 % (42.0-52.0); Hemoglobin 14.3 g/dl (14.0-18.0); Imm Gran Abs Auto 0.07 X10*3/uL (0.00-0.03); Imm Gran Pct Auto 1.3 % (0.0-0.4); Lymphocytes Absolute Auto 2.5 X10*3/uL (1.2-4.9); Mean Corpuscular HGB Conc 33.6 g/dl (31.0-36.0); Mean Corpuscular Hemoglobin 29.3 pg (27.0-33.0); Mean Corpuscular Volume 87.1 fL (80.0-98.0); NRBC Abs Auto 0.000 X10*3/uL (0.0-0.012); NRBC Pct Auto 0.0 /100WBC (0.0-0.2); Platelet Count 215 X10*3/uL (160-400); Red Blood Count 4.88 X10*6/uL (4.60-5.80); White Blood Count 5.6 X10*3/uL (4.8-10.8)
[2025-06-23 11:11] LABS: Microalbum/Creatinine Ratio Ur 4.9 ug/mg cr (<30)
[2025-06-23 11:20] LABS: Alanine Aminotransferase 15 U/L (0-40); Albumin Level 4.5 g/dL (3.5-5.0); Alkaline Phosphatase 53 U/L (39-117); Anion Gap 10 (12-20); Aspartate Amino Transferase 18 U/L (5-37); Blood Urea Nitrogen 17 mg/dL (9-16); Calcium 9.0 mg/dL (8.4-10.2); Carbon Dioxide 29 mmol/L (22-29); Chloride 106 mmol/L (96-108); Cholesterol 116 mg/dL (<200); Estimated Glomerular Filt Rate > 60; HDL Cholesterol 53 mg/dL (>40); Potassium 4.2 mmol/L (3.3-5.1); Sodium 141 mmol/L (135-145); Total Protein 7.0 g/dL (6.5-8.0); Triglycerides 118 mg/dL (<150)
[2025-06-23 11:31] LABS: Hemoglobin A1C 153.7275 umol/L
== END 2025-06-23 07:47 | disposition home or self-care (01) ==
LOC: HO.HMGCLDS 07:46
PROVIDERS: PCP Internal Medicine; Visit Provider Internal Medicine
DX: E11.9 Type 2 diabetes mellitus without complications (principal); E78.5 Hyperlipidemia, unspecified
CPT/HCPCS: 36415; 80053; 80061; 82043; 82570; 83036; 84443; 85025

== ENCOUNTER 2025-07-04 10:58 | Outpatient (AMB) | payer MEDICARE, MEDICAID, SELFPAY ==
--- NOTE | 2025-07-04 10:59 | A.OFFPC_ITS ---
Vital Signs 07/04/25 11:00 Height 5 ft 7 in Weight 200 lb BMI 31.3 BP 104/66 Blood Pressure Location Rt brachial Position Sitting Respiration 16 Pulse 77 Pulse Source Pulse Oximeter Temp 97.7 F Temp Source Oral Pulse Oximetry (%) 95 Oxygen Delivery Method Room Air Intake Visit Reasons: PE Intake Note: Pt is here today for PE. Allergies No Known Allergies Allergy (Verified 07/04/25 11:00) Medication List - Last Reconciled 07/04/25 by Gisela Jade MD Accu-Chek Guide Glucose Meter (blood-glucose meter) Test blood sugar once a day NS Accu-Chek Guide test strips (blood sugar diagnostic) Test blood sugar once a day NS Accu-Chek Softclix Lancets (lancets) Test blood sugar once a day NS azelaic acid 15% (Finacea) 1 appl topical BID cholecalciferol (vitamin D3) (Vitamin D3) 25 mcg PO DAILY divalproex ER 1,000 mg PO BEDTIME famotidine 20 mg PO BEDTIME finasteride 5 mg PO DAILY levetiracetam mg PO metformin ER 750 mg PO BID metoprolol tartrate 12.5 mg (1/2 x 25 mg) PO DAILY metronidazole 0.75% (MetroCream) 1 appl topical BEDTIME oxcarbazepine 300 mg PO BID rosuvastatin 20 mg PO DAILY tamsulosin (Flomax) 0.8 mg (2 x 0.4 mg) PO BEDTIME tirzepatide (Mounjaro) 7.5 mg (0.5 mL) subcut QWEEK Tobacco use date assessed: 07/04/25 Fall risk assessment: No Falls in past year Last assessed Fall Risk: 07/04/25 Dental Screening Dental Screen Date: 10/17/24 HPI PE HPI Details Patient presents for physical PFSH Medical History Annual physical exam Colonoscopy refused Colon cancer screening Type 2 diabetes mellitus CAD (coronary artery disease) Seizure Hyperlipidemia Cardiac arrest HTN (hypertension) Family History Father Diabetes Stroke Mother Hypertension Social History Housing: House Patient Tobacco Use Status: Former Tobacco user e-Cigarette/Vaping Use: Never Used service: No Current occupational status: retired Cognitive needs: No Hearing needs: Yes Vision needs: No Questionnaire Thrive Questionnaire Date Thrive assessed: 12/04/24 AUDIT C Alcohol Use Questionnaire (AUDIT-C) 1. How often do you have a drink containing alcohol?: Never 3. How often do you have six or more drinks on one occasion?: Never Total Score: 0 JOELLE-7 AMB Questionnaire JOELLE-7 Date JOELLE - 7 assessed: 10/17/24 Source: Developed by Drs. Flo Holley, Torrie Dave, Mohit Martino and colleagues, with an educational deniz from [employer]. Review of Systems Const All systems reviewed & are unremarkable except as noted in HPI and below Eyes Reports no additional complaints ENT Reports no additional complaints Card Reports no additional complaints Physical exam (Primary Care) Vital Signs: Last Vital Signs Temp 97.7 F 07/04/25 11:00 Pulse 77 07/04/25 11:00 Resp 16 07/04/25 11:00 BP 104/66 07/04/25 11:00 Pulse Ox 95 07/04/25 11:00 Oxygen Delivery Method Room Air 07/04/25 11:00 BMI result Body Mass Index 31.3 Tobacco/Smoking Status: Tobacco use Status Tobacco use date assessed 07/04/25 07/04/25 11:01 Patient Tobacco Use Status Former Tobacco user 07/04/25 11:00 e-Cigarette/Vaping Use Never Used 07/04/25 11:00 Thrive Assessment: Date of Thrive Assessment Date Thrive assessed 12/04/24 07/04/25 11:00 Const General: no acute distress HENMT Head: Yes normal to inspection Ears: hearing grossly normal bilaterally Mouth: Normal oral and palatal mucosa present Throat: Yes posterior oropharynx normal Eyes General: appearance normal, both eyes and all related structures Neck Neck: Yes no lymphadenopathy and Yes supple Resp Effort & Inspection: normal respiratory effort Auscultation: clear to auscultation bilaterally Cardio Rhythm: regular rhythm Heart sounds: S1 normal heart sound present and S2 normal heart sound present GI Inspection: Yes normal to inspection Palpation (GI): Soft to palpation Percussion: Yes normal to percussion Auscultation: normal bowel sounds Extrem General: Yes no clubbing, cyanosis or edema Coding Level of Care Code Est Pt Prev Care >65y(42778) Diagnoses Seizure R56.9 Type 2 diabetes mellitus E11.9 Annual physical exam Z00.00 Assessment & Plan Assessment & Plan (1) Seizure: Comment: 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 ADA diet increase physical activity and weight loss discussed with the patient and his . Mounjaro will be increased to 7.5 mg weekly and metformin continued. Patient will follow-up in 4 months with a fasting labs before (3) Annual physical exam: Code(s): Z00.00 - Encounter for general adult medical examination without abnormal findings Category: Medical Plan: Well-balanced diet regular physical activity decrease caloric intake discussed with the patient. Patient had negative Cologuard in October of 2024 done by the insurance and will obtain a copy of the results Orders: Orders Lipid Panel 4 Months E11.9 - Type 2 diabetes mellitus without complications, R56.9 - Unspecified convulsions, Z00.00 - Encounter for general adult medical examination without abnormal findings UA w Microscopic 4 Months E11.9 - Type 2 diabetes mellitus without complications, R56.9 - Unspecified convulsions, Z00.00 - Encounter for general adult medical examination without abnormal findings Hemoglobin A1c 4 Months E11.9 - Type 2 diabetes mellitus without complications, R56.9 - Unspecified convulsions, Z00.00 - Encounter for general adult medical examination without abnormal findings Comprehensive [place]. Panel Fast 4 Months E11.9 - Type 2 diabetes mellitus without complications, R56.9 - Unspecified convulsions, Z00.00 - Encounter for general adult medical examination without abnormal findings Microalbumin, Random (w Creat) 4 Months E11.9 - Type 2 diabetes mellitus without complications, R56.9 - Unspecified convulsions, Z00.00 - Encounter for general adult medical examination without abnormal findings Medications: New tirzepatide (Mounjaro) 7.5 mg (0.5 mL) subcut QWEEK 2 mL 3RF cholecalciferol (vitamin D3) (Vitamin D3) 25 mcg PO DAILY 90 caps 3RF Refilled rosuvastatin 20 mg PO DAILY 90 tabs 3RF metformin ER 750 mg PO BID 180 tabs 3RF azelaic acid 15% (Finacea) 1 appl topical BID 100 grams 1RF finasteride 5 mg PO DAILY 90 tabs 3RF Discontinued tamsulosin (Flomax) Discontinued Reason: Doctor's Order 0.8 mg (2 x 0.4 mg) PO BEDTIME 180 caps 2RF Mounjaro (tirzepatide) Discontinued Reason: Doctor's Order 5 mg (0.5 mL) subcut QWEEK 6 mL 2RF NS
[2025-07-04 11:00] VITALS: BP 104/66; PULSE 77; RESP 16; TEMP 36.5; O2SAT 95; BMI 31.3
== END 2025-07-04 11:55 | disposition home or self-care (01) ==
LOC: HO.HMCC 10:58
PROVIDERS: PCP Internal Medicine; Visit Provider Internal Medicine
DX: Z00.00 Encounter for general adult medical examination without abnormal findings (principal); R56.9 Unspecified convulsions; E11.9 Type 2 diabetes mellitus without complications

== ENCOUNTER → 2025-07-04 10:58 | Outpatient (BNVA) | payer MEDICARE, MEDICAID, SELFPAY | PROVIDERS: PCP Internal Medicine; Visit Provider Internal Medicine | DX: Z00.00 Encounter for general adult medical examination without abnormal findings (principal); E11.9 Type 2 diabetes mellitus without complications; R56.9 Unspecified convulsions | CPT/HCPCS: 99397 ==